=== PATIENT | female | born 1995 | race Caucasian/White ===

== ENCOUNTER 2017-11-30 18:40 | Emergency (ER) | payer BC ==
[2017-11-30 19:15] VITALS: TEMP 98.6
[2017-11-30] MEDS ORDERED: SODIUM CHLORIDE 0.9% 1,000 ML IV STA (19:48)
--- NOTE | 2017-11-30 19:50 | ED ---
Dizziness HPI - General Chief Complaint: Dizziness Stated Complaint: Dizziness,Fatigue,Hypertension Time Seen by Provider: 11/30/17 19:28 Source: patient, RN notes reviewed Mode of arrival: wheelchair Limitations: no limitations - History of Present Illness Initial Comments: This is a 22-year-old female, currently 13 weeks , who presents to the emergency department with chief complaint of dizziness and high blood pressure. Patient states that she was sent home from work on Friday because she became very dizzy. She states that she feels like the room is spinning. She also states that for the past 3 days she's been checking her blood pressure. Earlier today she states she had an at-home blood pressure of 184/ 109. Patient states that she has a history of Sjogren's and is considered a high risk so she goes to maternal medicine on [address]. Patient denies any abdominal pain, nausea or vomiting, diarrhea or constipation, vaginal bleeding or discharge. She does state that she has been feeling very fatigued recently. - Related Data Allergies Allergy/AdvReac Type Severity Reaction Status Date / Time doxycycline Allergy Unknown Verified 11/30/17 19:15 Sulfa (Sulfonamide Allergy Unknown Verified 11/30/17 19:15 Antibiotics) Review of Systems ROS Statement: Those systems with pertinent positive or pertinent negative responses have been documented in the HPI. ROS Other: All systems not noted in ROS Statement are negative. Past Medical History Past Medical History: No Reported History History of Any Multi-Drug Resistant Organisms: None Reported Past Surgical History: Ear Surgery, Tonsillectomy Past Psychological History: Anxiety Smoking Status: Never smoker Past Alcohol Use History: None Reported Past Drug Use History: None Reported General Exam - General Exam Comments Initial Comments: General: Awake and alert, well-developed; in no apparent distress. Mother and grandmother are at bedside. HEENT: Head atraumatic, normocephalic. Pupils are equal, round and reactive to light. Extraocular movements intact. Oropharynx moist without erythema or exudate. Neck: Supple. Normal ROM. Cardiovascular: Regular rate and rhythm. No murmurs, rubs or gallops. Chest symmetrical. Respiratory: Lungs clear to auscultation bilaterally. No wheezes, rales or rhonchi. Normal respiratory effort with no use of accessory muscles. Abdomen: Soft, non-tender, non-distended. No rigidity, rebound or guarding. Normal bowel sounds in all 4 quadrants. Musculoskeletal: Normal ROM, no tenderness bilateral upper and lower extremities. Ambulating normally. Skin: Gordon, warm and dry without rashes or lesions. Neurological: Alert and oriented x3. CN II-XII grossly intact. Speech is fluent and answers are appropriate. No focal neuro deficits. Psychiatric: Normal mood and affect. No overt signs of depression or anxiety noted. Limitations: no limitations Course Vital Signs 11/30/17 19:13 Temperature 98.6 F Pulse Rate 113 H Respiratory 18 Rate Blood Pressure 158/90 O2 Sat by Pulse 100 Oximetry Medical Decision Making - Medical Decision Making This is a 22-year-old female, currently 13 weeks who presents to the emergency department with chief complaint of dizziness and high blood pressure. Patient states that she developed an episode of dizziness on Friday. Denies shortness of breath, chest pain, fevers or chills, abdominal pain, vaginal bleeding or discharge. CBC, CMP and UA were unremarkable. Patient denies any episodes of dizziness while in the emergency department. Her blood pressure was elevated while here. I recommended following up with her PAGE DESIGNER as soon as possible for possible hypertension prescription. Patient is in agreement with plan and voices understanding. She'll be discharged home at this time. She is in no acute distress. - Lab Data Result diagrams: 11/30/17 20:07 11/30/17 20:07 Lab Results 11/30/17 11/30/17 11/30/17 Range/Units 20:07 20:07 20:07 WBC 10.9 H (3.8-10.6) k/uL RBC 4.88 (3.80-5.40) m/uL Hgb 14.4 (11.4-16.0) gm/dL Hct 40.4 (34.0-46.0) % MCV 82.7 (80.0-100.0) fL MCH 29.6 (25.0-35.0) pg MCHC 35.7 (31.0-37.0) g/dL RDW 13.0 (11.5-15.5) % Plt Count 350 (150-450) k/uL Neutrophils % 64 % Lymphocytes % 27 % Monocytes % 6 % Eosinophils % 1 % Basophils % 0 % Neutrophils # 7.0 (1.3-7.7) k/uL Lymphocytes # 3.0 (1.0-4.8) k/uL Monocytes # 0.6 (0-1.0) k/uL Eosinophils # 0.1 (0-0.7) k/uL Basophils # 0.0 (0-0.2) k/uL Sodium 141 (137-145) mmol/L Potassium 3.5 (3.5-5.1) mmol/L Chloride 102 (98-107) mmol/L Carbon Dioxide 25 (22-30) mmol/L Anion Gap 14 mmol/L BUN 5 L (7-17) mg/dL Creatinine 0.40 L (0.52-1.04) mg/dL Est GFR (CKD-EPI)AfAm >90 (>60 ml/min/1.73 sqM) Est GFR (CKD-EPI)NonAf >90 (>60 ml/min/1.73 sqM) Glucose 86 (74-99) mg/dL Calcium 9.2 (8.4-10.2) mg/dL Total Bilirubin 0.6 (0.2-1.3) mg/dL AST 17 (14-36) U/L ALT 26 (9-52) U/L Alkaline Phosphatase 75 (38-126) U/L Total Protein 6.6 (6.3-8.2) g/dL Albumin 3.9 (3.5-5.0) g/dL Urine Color Yellow Urine Appearance Clear (Clear) Urine pH 6.5 (5.0-8.0) Ur Specific [place] 1.012 (1.001-1.035) Urine Protein Negative (Negative) Urine Glucose (UA) Negative (Negative) Urine Ketones 2+ H (Negative) Urine Blood Negative (Negative) Urine Nitrite Negative (Negative) Urine Bilirubin Negative (Negative) Urine Urobilinogen <2.0 (<2.0) mg/dL Ur Leukocyte Esterase Negative (Negative) Disposition Clinical Impression: Dizziness Disposition: HOME SELF-CARE Condition: Good Instructions: Dizziness (ED) Additional Instructions: Please follow-up with your PAGE DESIGNER as soon as possible. Please follow up with primary care provider within 1-2 days. Return to emergency department if symptoms should worsen or any concerns arise. Is patient prescribed a controlled substance at d/c from ED?: No Referrals: Aries Diez MD [Primary Care Provider] - 1-2 days Time of Disposition: 20:49
[2017-11-30 20:16] LABS: Appearance,Urine Clear (Clear); Bilirubin,Urine Negative (Negative); Blood,Urine Negative (Negative); Color,Urine Yellow; Glucose,Urine (UA) Negative (Negative); Ketones,Urine 2+ (Negative); Leukocyte Esterase,Urine Negative (Negative); Nitrite,Urine Negative (Negative); PH, Urine 6.5 (5.0-8.0); Protein,Urine Negative (Negative); Specific Gravity,Urine 1.012 (1.001-1.035); Urobilinogen,Urine <2.0 mg/dL (<2.0)
[2017-11-30 20:18] LABS: Basophils % (A) 0 %; Eosinophils # (A) 0.1 k/uL (0-0.7); Eosinophils % (A) 1 %; HCT 40.4 % (34.0-46.0); HGB 14.4 gm/dL (11.4-16.0); Lymphocytes % (A) 27 %; MCH 29.6 pg (25.0-35.0); MCHC 35.7 g/dL (31.0-37.0); MCV 82.7 fL (80.0-100.0); Mean Platelet Volume 5.8; Monocytes # (A) 0.6 k/uL (0-1.0); Monocytes % (A) 6 %; Neutrophils % (A) 64 %; Platelet Count 350 k/uL (150-450); RBC 4.88 m/uL (3.80-5.40); WBC 10.9 k/uL (3.8-10.6)
[2017-11-30 20:27] LABS: ALT 26 U/L (9-52); AST 17 U/L (14-36); Albumin 3.9 g/dL (3.5-5.0); Alkaline Phosphatase 75 U/L (38-126); Anion Gap 14 mmol/L; Blood Urea Nitrogen 5 mg/dL (7-17); Calcium 9.2 mg/dL (8.4-10.2); Carbon Dioxide 25 mmol/L (22-30); Chloride 102 mmol/L (98-107); Glucose 86 mg/dL (74-99); Potassium 3.5 mmol/L (3.5-5.1); Sodium 141 mmol/L (137-145); Total Bilirubin 0.6 mg/dL (0.2-1.3); Total Protein 6.6 g/dL (6.3-8.2)
[2017-11-30 21:16] VITALS: BP 137/88; PULSE 87; RESP 16
== END 2017-11-30 21:15 | disposition home or self-care (01) ==
LOC: EC 18:40
DX: O99.89 Other specified diseases and conditions complicating pregnancy, childbirth and the puerperium (principal); R42 Dizziness and giddiness; R03.0 Elevated blood-pressure reading, without diagnosis of hypertension; R53.83 Other fatigue; Z88.1 Allergy status to other antibiotic agents; Z88.2 Allergy status to sulfonamides; Z3A.13 13 weeks gestation of pregnancy
CPT/HCPCS: 36415; 80053; 81003; 85025; 96360; 99284

== ENCOUNTER 2018-04-18 17:31 | Outpatient (CLI) | payer BC ==
[2018-04-18 18:58] VITALS: BP 125/79
[2018-04-18 19:06] VITALS: PULSE 108; RESP 18; TEMP 97.3
--- NOTE | 2018-04-19 09:25 | P.MSEPDOC ---
Presenting Problems - Arrival Data Date of Arrival on Unit: 04/18/18 Time of Arrival on Unit: 17:30 Mode of Transport: Ambulatory - Complaint OB-Reason for Admission/Chief Complaint: NST Comment: gest diabetes Medical History - Information : 1 Para: 0 Term: 0 : 0 Abortions: Spontaneous or Elective: 0 Number of Living Children: 0 - Gestational Age Gestational Age by YAMILE (wks/days): 32 Weeks and 6 Days - History Complications: GDM Review of Systems - Review of Systems Constitutional: No problems Breast: No problems ENT: No problems Cardiovascular: No problems Respiratory: No problems Gastrointestinal: No problems Genitourinary: No problems Musculoskeletal: No problems Neurological: No problems Skin: No problems Vital Signs - Temperature Temperature: 97.3 F Temperature Source: Oral - Pulse Right Brachial Pulse Rate: 108 Pulse Assessment Method: Automatic Cuff - Respirations Respiratory Rate: 18 Oxygen Delivery Method: Room Air O2 Sat by Pulse Oximetry: 98 - Blood Pressure Right Arm Blood Pressure: 125/79 Blood Pressure Mean: 94 Blood Pressure Source: Automatic Cuff Medical Screen Scoring (Pre) - Cervical Exam Dilation: 0 cm = 0 Membranes: Intact - Uterine Contractions Frequency: < 36 weeks = 6 Duration: N/A Intensity: N/A - Maternal Vital Signs Maternal Temperature: N/A Maternal Blood Pressure: N/A Signs of Preeclampsia: N/A Maternal Respirations: N/A - Pain Assessment Pain Scale Used: Numeric (1 - 10) Pain Intensity: 0 - Maternal Trauma Maternal Trauma: N/A - Assessment Baseline FHR: 135 Heart Rate - NICHD Category: Category I (Normal) = 0 NST: Reactive Position: N/A Station: N/A - Total Score Total Score (Pre): 6 - Level of Risk Level of Risk: Medium (6-9) Physician Notification (Pre) - Physician Notified Spoke With: debi. - Notification Comment Comment: informed of vag exam. ok for discharge once ffn result is back negative from lab Medical Screen Scoring (Post) - Uterine Contractions Frequency: N/A Duration: N/A Intensity: N/A - Maternal Vital Signs Maternal Temperature: N/A Maternal Blood Pressure: N/A Signs of Preeclampsia: N/A Maternal Respirations: N/A - Pain Assessment Pain Scale Used: Numeric (1 - 10) Pain Intensity: 0 - Total Score Total Score (Post): 0 Physician Notification (Post) - Physician Notified Physician Notified Date: 04/18/18 Physician Notified Time: 19:28 Physician/Practitioner Notified:: Dr. Casas Spoke With: Dr. Casas New Order Received: Yes - Notification Comment Comment: Dr. Casas called and given report on pt ffn results of negative. Orders recieved to d/c pt to home. Pt has apt with Dr. Clark 04/20 at 1600 Disposition - Disposition OB Disposition: Discharge to home Discharge Date: 04/18/18 Discharge Time: 19:30 I agree with the RN Medical Screening Exam: Yes Risk & Benefit of care provided described in d/c instruction: Yes Diagnosis: FALSE LABOR BEFORE 37 COMPLETED WEEKS OF GEST, THIRD TRI
== END 2018-04-18 19:30 | disposition home or self-care (01) ==
LOC: FBPOP 17:31
PROVIDERS: ATTEND Obstetrics & Gynecology
DX: O47.03 False labor before 37 completed weeks of gestation, third trimester (principal); Z3A.32 32 weeks gestation of pregnancy
CPT/HCPCS: 59025; 82731; 99213

== ENCOUNTER 2018-04-19 15:55 | Emergency (ER) | payer BC ==
[2018-04-19 16:17] VITALS: BP 133/92; TEMP 98
--- NOTE | 2018-04-19 17:01 | ED ---
General Adult HPI - General Chief complaint: ENT Stated complaint: Ear pain Time Seen by Provider: 04/19/18 16:25 Source: patient, RN notes reviewed Mode of arrival: ambulatory Limitations: no limitations - History of Present Illness Initial comments: 22-year-old female since to the emergency department for a chief complaint of left ear irritation times one week. Patient states she has had ear pain and decreased hearing for the last week. She states that today when she woke up she had some numbness around her left ear. Patient denies any headaches or pain behind the ear. Patient states she has had chronic ear problems for years. She states she had tubes in her ears multiple times. Patient states she has had chronic ear infections but is not sure what antibiotic she has been prescribed. She states she has ALLERGIES to penicillins and sulfa. She states she had an antibiotic that she cannot remember that caused her symptoms of dizziness a few months ago when she took it. Patient denies fevers or chills at home. Patient admits to mild congestion. Patient denies any cough or sore throat. Patient has no other complaints at this time including shortness of breath, chest pain, abdominal pain, nausea or vomiting, headache, or visual changes. - Related Data Home Medications Medication Instructions Recorded Confirmed Albuterol Inhaler [Ventolin Hfa PRN 04/18/18 Inhaler] Calcium Carbonate [Tums] 500 mg PO TID PRN 04/18/18 04/18/18 Pnv,Calcium 72/Iron/Folic Acid 1 each PO DAILY MDD 1 04/18/18 04/18/18 [ Plus Tablet] Allergies Allergy/AdvReac Type Severity Reaction Status Date / Time Sulfa (Sulfonamide Allergy Severe Rash/Hives Verified 04/19/18 16:18 Antibiotics) doxycycline Allergy Intermediate Rash/Hives Verified 04/19/18 16:18 Penicillins Allergy Rash/Hives Verified 04/19/18 16:18 Review of Systems ROS Statement: Those systems with pertinent positive or pertinent negative responses have been documented in the HPI. ROS Other: All systems not noted in ROS Statement are negative. Past Medical History Past Medical History: No Reported History History of Any Multi-Drug Resistant Organisms: None Reported Past Surgical History: Ear Surgery, Tonsillectomy Past Psychological History: Anxiety Smoking Status: Former smoker Past Alcohol Use History: None Reported Past Drug Use History: None Reported General Exam Limitations: no limitations General appearance: alert, in no apparent distress Head exam: Present: atraumatic, normocephalic, normal inspection Eye exam: Present: normal appearance. Absent: scleral icterus, conjunctival injection ENT exam: Present: normal exam, normal oropharynx (Uvula midline, no tonsillar exudates noted bilaterally. Non-erythematous oropharynx.), mucous membranes moist, TM's normal bilaterally (Very slight erythema noted of the superior left tympanic membranes without evidence of infection.), normal external ear exam ( No tenderness to the tragus or pinna of the left ear. No mastoid tenderness to palpation.) Neck exam: Present: normal inspection, full ROM. Absent: tenderness, meningismus, lymphadenopathy Respiratory exam: Present: normal lung sounds bilaterally. Absent: respiratory distress, wheezes, rales, rhonchi, stridor Cardiovascular Exam: Present: regular rate, normal rhythm, normal heart sounds. Absent: systolic murmur, diastolic murmur, rubs, gallop, clicks Extremities exam: Present: full ROM (Patient moving all extremities without difficulty) Neurological exam: Present: alert, oriented X3, CN II-XII intact, normal gait. Absent: motor sensory deficit (Sensation intact in upper and lower extremities) Expanded Patient oriented to: Present: person, place, time Speech: Present: fluid speech Cranial nerves: EOM's Intact: Normal, Tongue Deviation: Normal, Nystagmus: Normal Cerebellar function: Finger to Nose: Normal Upper motor neuron: Pronator Drift: Normal Sensory exam: Upper Extremity Light Touch: Normal, Upper Extremity Pin Prick: Normal, Lower Extremity Light Touch: Normal, Lower Extremity Pin Prick: Normal Motor strength exam: RUE: 5, LUE: 5, RLE: 5, LLE: 5 Eye Response: (4) open spontaneously Motor Response: (6) obeys commands Verbal Response: (5) oriented Alphonso Total: 15 Psychiatric exam: Present: normal affect (Patient sitting up in bed alert and oriented. She is pleasant and cooperative.), normal mood Skin exam: Present: other (patient has mildly decreased sensation anterior to the left ear, no facial droop, patient able to smile and raise eyebrows symmetrically.) Course Vital Signs 04/19/18 04/19/18 16:15 17:11 Temperature 98 F Pulse Rate 108 H 103 H Respiratory 16 18 Rate Blood Pressure 133/92 O2 Sat by Pulse 99 98 Oximetry Medical Decision Making - Medical Decision Making 22-year-old female presents to the emergency department for a chief complaint of left ear pain times one week. Patient has history of chronic ear infections and has had tympanostomy in the past. No fevers or chills at home. Patient states her hearing has been decreased since that time as well. Patient also complains of some numbness noted anterior to the left ear after she woke up today from laying on that side. No focal neuro deficits, GCS 15, patient is well-appearing, pleasant and cooperative. Skin exam patient has very mild erythema noted of the left superior tympanic membranes without any pain to the tragus pinna or mastoid process. Patient does have some congestion. Dr. Scott also saw the patient and visualized the ear. Right tympanic membranes within normal limits. We are in agreement that left TM does not appear infected but is probably irritated and patient is probably experiencing eustachian tube dysfunction. I did recommend Afrin nasal spray but discussed with patient that she should discuss this use with her OBGYN at her appointment tomorrow before taking. She is to take Tylenol for pain. She is to return if she has any worsening symptoms or fever. Disposition Clinical Impression: Ear ache Disposition: HOME SELF-CARE Condition: Good Instructions: Earache (ED) Additional Instructions: Please take tylenol for pain. Please discuss use of Afrin spray with OBGYN for eustachian tube dysfunction. Follow up with primary care in 1-2 days. Return to the ED if you have any worsening symptoms or fevers. Is patient prescribed a controlled substance at d/c from ED?: No Referrals: Nonstaff,Physician [Primary Care Provider] - 1-2 days Time of Disposition: 16:59
[2018-04-19 17:12] VITALS: PULSE 103; RESP 18
== END 2018-04-19 17:12 | disposition home or self-care (01) ==
LOC: EC 15:55
DX: H92.02 Otalgia, left ear (principal); H91.92 Unspecified hearing loss, left ear; R20.0 Anesthesia of skin; R09.89 Other specified symptoms and signs involving the circulatory and respiratory systems; Z87.891 Personal history of nicotine dependence; Z96.22 Myringotomy tube(s) status; Z88.2 Allergy status to sulfonamides; Z88.1 Allergy status to other antibiotic agents; Z88.0 Allergy status to penicillin
CPT/HCPCS: 99282

== ENCOUNTER 2018-04-21 16:19 | Outpatient (CLI) | payer BC ==
--- NOTE | 2018-05-12 09:33 | P.MSEPDOC ---
Presenting Problems - Arrival Data Date of Arrival on Unit: 04/21/18 Time of Arrival on Unit: 16:22 Mode of Transport: Ambulatory Disposition - Disposition Discharge Date: 04/21/18 Discharge Time: 17:04 I agree with the RN Medical Screening Exam: Yes Risk & Benefit of care provided described in d/c instruction: Yes Diagnosis: GESTATIONAL DIABETES MELLITUS IN , DIET CONTROLLED
== END 2018-04-21 17:05 | disposition home or self-care (01) ==
LOC: FBPOP 16:19
PROVIDERS: ATTEND Obstetrics & Gynecology
DX: O24.410 Gestational diabetes mellitus in pregnancy, diet controlled (principal); Z3A.00 Weeks of gestation of pregnancy not specified
CPT/HCPCS: 59025

== ENCOUNTER 2018-04-25 16:32 | Outpatient (CLI) | payer BC ==
[2018-04-25 17:07] VITALS: BP 124/79; PULSE 105; RESP 16; TEMP 97.2
--- NOTE | 2018-05-12 09:32 | P.MSEPDOC ---
Presenting Problems - Arrival Data Date of Arrival on Unit: 04/25/18 Time of Arrival on Unit: 16:30 Mode of Transport: Ambulatory Vital Signs - Temperature Temperature: 97.2 F Temperature Source: Temporal Artery Scan - Pulse Right Brachial Pulse Rate: 105 Pulse Assessment Method: Automatic Cuff - Respirations Respiratory Rate: 16 Oxygen Delivery Method: Room Air O2 Sat by Pulse Oximetry: 97 - Blood Pressure Right Arm Blood Pressure: 124/79 Blood Pressure Mean: 94 Blood Pressure Source: Automatic Cuff Medical Screen Scoring (Post) - Cervical Exam Dilation: Exam Deferred - Uterine Contractions Frequency: N/A Duration: N/A Intensity: N/A - Maternal Vital Signs Maternal Temperature: N/A Maternal Blood Pressure: N/A Signs of Preeclampsia: N/A Maternal Respirations: N/A - Pain Assessment Pain Scale Used: Numeric (1 - 10) Pain Intensity: 0 Pain Management Goal: 0 Pain Behavior: None Exhibited - Maternal Trauma Maternal Trauma: N/A - Assessment Heart Rate: 135 Heart Rate - NICHD Category: Category I (Normal) = 0 NST: Reactive Position: N/A - Total Score Total Score (Post): 0 - Post Treatment Level of Risk Post Treatment Level of Risk: Low (0-5) Physician Notification (Post) - Physician Notified Physician Notified Date: 04/25/18 Physician Notified Time: 17:05 Physician/Practitioner Notified:: Amber Spoke With: Amber New Order Received: No - Notification Comment Comment: pt here for scheduled bi-weekly NST's relatd to gestational diabetes. Dr Clark here in department, reviewed strip,verbal order received to discharge pt home. Disposition - Disposition OB Disposition: Discharge to home Discharge Date: 04/25/18 Discharge Time: 17:06 I agree with the RN Medical Screening Exam: Yes Risk & Benefit of care provided described in d/c instruction: Yes Diagnosis: GESTATIONAL DIABETES MELLITUS IN , DIET CONTROLLED
== END 2018-04-25 17:10 | disposition home or self-care (01) ==
LOC: FBPOP 16:32
PROVIDERS: ATTEND Obstetrics & Gynecology
DX: O24.410 Gestational diabetes mellitus in pregnancy, diet controlled (principal); Z3A.00 Weeks of gestation of pregnancy not specified
CPT/HCPCS: 59025; 99213

== ENCOUNTER 2018-04-28 17:27 | Outpatient (CLI) | payer BC ==
[2018-04-28 18:54] VITALS: BP 127/81; PULSE 95; RESP 15; TEMP 97.3
--- NOTE | 2018-05-16 09:37 | P.MSEPDOC ---
Presenting Problems - Arrival Data Date of Arrival on Unit: 04/28/18 Time of Arrival on Unit: 17:27 Mode of Transport: Ambulatory Vital Signs - Temperature Temperature: 97.3 F Temperature Source: Temporal Artery Scan - Pulse Brachial Pulse Rate: 95 Pulse Assessment Method: Automatic Cuff - Respirations Respiratory Rate: 15 Oxygen Delivery Method: Room Air O2 Sat by Pulse Oximetry: 98 - Blood Pressure Right Arm Sitting Blood Pressure: 127/81 Blood Pressure Mean: 96 Blood Pressure Source: Automatic Cuff Medical Screen Scoring (Post) - Cervical Exam Dilation: 0 cm = 0 Membranes: Intact - Uterine Contractions Frequency: < 36 weeks = 6 Duration: N/A Intensity: N/A - Maternal Vital Signs Maternal Temperature: N/A Maternal Blood Pressure: N/A Signs of Preeclampsia: N/A Maternal Respirations: N/A - Pain Assessment Pain Location and Character: Abdomen Pain Scale Used: Numeric (1 - 10) Pain Intensity: 3 Pain Management Goal: 2 Pain Description: *Acute Pain Frequency: Intermittent Pain Duration Units: Hours Pain Behavior: Vocalization Pain Aggravating Factors: Activity, Position Non-Pharmacological Interventions: Relaxation Technique - Maternal Trauma Maternal Trauma: N/A - Assessment Heart Rate: 130 Heart Rate - NICHD Category: Category I (Normal) = 0 NST: Reactive Position: N/A Station: N/A - Total Score Total Score (Post): 6 - Post Treatment Level of Risk Post Treatment Level of Risk: Medium (6-9) Physician Notification (Post) - Physician Notified Physician Notified Date: 04/28/18 Physician Notified Time: 18:05 Spoke With: Dr Casas New Order Received: Yes - Notification Comment Comment: pt here for bi-weekly NST for Gest DM. pt graphing mild contx on toco , had recent intercourse. Pt checked and is closed. pt states she feels like the tightening has gotten better since earlier today. pt sent home per Dr Casas order and will return on Friday for another NST and vag exam if needed. Disposition - Disposition OB Disposition: Triage, Discharge to home, Written follow up instructions reviewed Discharge Date: 04/28/18 Discharge Time: 18:25 I agree with the RN Medical Screening Exam: Yes Risk & Benefit of care provided described in d/c instruction: Yes Diagnosis: GESTATIONAL DIABETES IN THE PUERPERIUM, DIET CONTROLLED
== END 2018-04-28 18:25 | disposition home or self-care (01) ==
LOC: FBPOP 17:27
PROVIDERS: ATTEND Obstetrics & Gynecology
DX: O24.420 Gestational diabetes mellitus in childbirth, diet controlled (principal); Z3A.00 Weeks of gestation of pregnancy not specified
CPT/HCPCS: 59025

== ENCOUNTER 2018-05-02 11:59 | Outpatient (CLI) | payer BC ==
--- NOTE | 2018-05-11 08:24 | P.MSEPDOC ---
Presenting Problems - Arrival Data Date of Arrival on Unit: 05/02/18 Time of Arrival on Unit: 12:10 Mode of Transport: Ambulatory Disposition - Disposition Discharge Date: 05/02/18 Discharge Time: 12:39 I agree with the RN Medical Screening Exam: Yes Risk & Benefit of care provided described in d/c instruction: Yes Diagnosis: GESTATIONAL DIABETES MELLITUS IN , DIET CONTROLLED
== END 2018-05-02 12:40 | disposition home or self-care (01) ==
LOC: FBPOP 11:59
PROVIDERS: ATTEND Obstetrics & Gynecology
DX: O24.410 Gestational diabetes mellitus in pregnancy, diet controlled (principal); Z3A.00 Weeks of gestation of pregnancy not specified
CPT/HCPCS: 59025

== ENCOUNTER 2018-05-04 16:40 | Outpatient (CLI) | payer BC ==
[2018-05-04 17:16] VITALS: BP 123/77; PULSE 111; RESP 16; TEMP 98.2
--- NOTE | 2018-05-05 08:25 | P.MSEPDOC ---
Presenting Problems - Arrival Data Date of Arrival on Unit: 05/04/18 Time of Arrival on Unit: 16:40 Mode of Transport: Ambulatory - Complaint OB-Reason for Admission/Chief Complaint: NST Comment: Pt arrives with script for biweekly NST r/t GDM-diet controlled. Medical History - Information : 1 Para: 0 Term: 0 : 0 Abortions: Spontaneous or Elective: 0 Number of Living Children: 0 - Gestational Age Gestational Age by YAMILE (wks/days): 35 Weeks and 1 Days - History Complications: GDM Review of Systems - Review of Systems Constitutional: No problems Breast: No problems ENT: No problems Cardiovascular: No problems Respiratory: No problems Gastrointestinal: No problems Genitourinary: No problems Musculoskeletal: No problems Neurological: No problems Skin: No problems Vital Signs - Temperature Temperature: 98.2 F Temperature Source: Tympanic - Pulse Right Sitting Brachial Pulse Rate: 111 Pulse Assessment Method: Automatic Cuff - Respirations Respiratory Rate: 16 Oxygen Delivery Method: Room Air O2 Sat by Pulse Oximetry: 97 - Blood Pressure Right Arm Sitting Blood Pressure: 123/77 Blood Pressure Mean: 92 Blood Pressure Source: Automatic Cuff Medical Screen Scoring (Pre) - Cervical Exam Dilation: Exam Deferred Effacement: Exam Deferred Membranes: Intact - Uterine Contractions Frequency: N/A Duration: N/A Intensity: N/A - Maternal Vital Signs Maternal Temperature: N/A Maternal Blood Pressure: N/A Signs of Preeclampsia: N/A Maternal Respirations: N/A - Maternal Trauma Maternal Trauma: N/A - Assessment Baseline FHR: 140 Heart Rate - NICHD Category: Category I (Normal) = 0 NST: Reactive Position: N/A Station: N/A - Total Score Total Score (Pre): 0 - Level of Risk Level of Risk: Low (0-5) Physician Notification (Pre) - Notification Comment Comment: D/C home, follow up as scheduled Disposition - Disposition OB Disposition: Triage, Discharge to home, Written follow up instructions reviewed Discharge Date: 05/04/18 Discharge Time: 17:15 I agree with the RN Medical Screening Exam: Yes Risk & Benefit of care provided described in d/c instruction: Yes Diagnosis: GESTATIONAL DIABETES MELLITUS IN , DIET CONTROLLED
== END 2018-05-04 17:15 | disposition home or self-care (01) ==
LOC: FBPOP 16:40
PROVIDERS: ATTEND Obstetrics & Gynecology
DX: O24.410 Gestational diabetes mellitus in pregnancy, diet controlled (principal); Z3A.35 35 weeks gestation of pregnancy
CPT/HCPCS: 59025

== ENCOUNTER 2018-05-06 15:26 | Outpatient (CLI) | payer BC ==
[2018-05-06 16:32] VITALS: BP 126/82; PULSE 98; RESP 18; TEMP 97.3
[2018-05-06 16:36] LABS: Glucose,Whole Blood 71 mg/dL (75-99)
--- NOTE | 2018-05-11 07:46 | P.MSEPDOC ---
Presenting Problems - Arrival Data Date of Arrival on Unit: 05/06/18 Time of Arrival on Unit: 15:35 Mode of Transport: Ambulatory - Complaint OB-Reason for Admission/Chief Complaint: Rule Out SROM Comment: leaking today at 1320, clear after using the restroom and ambulating at work Medical History - Information : 1 Para: 0 Term: 0 : 0 Abortions: Spontaneous or Elective: 0 Number of Living Children: 0 - Gestational Age Gestational Age by YAMILE (wks/days): 35 Weeks and 3 Days - History Complications: GDM Comment: hx GDM diet controlled and sjogrens disease, follow by high risk Review of Systems - Review of Systems Constitutional: No problems Breast: No problems ENT: No problems Cardiovascular: No problems Respiratory: No problems Gastrointestinal: No problems Genitourinary: No problems Musculoskeletal: No problems Neurological: No problems Skin: No problems Vital Signs - Temperature Temperature: 97.3 F Temperature Source: Temporal Artery Scan - Pulse Right Sitting Brachial Pulse Rate: 98 Pulse Assessment Method: Automatic Cuff - Respirations Respiratory Rate: 18 Oxygen Delivery Method: Room Air O2 Sat by Pulse Oximetry: 98 - Blood Pressure Right Arm Sitting Blood Pressure: 126/82 Blood Pressure Mean: 96 Blood Pressure Source: Automatic Cuff Medical Screen Scoring (Pre) - Cervical Exam Dilation: 1-3 cm = 1 - Uterine Contractions Frequency: > 5 minutes apart = 1 Duration: N/A Intensity: N/A - Maternal Vital Signs Maternal Temperature: N/A Maternal Blood Pressure: N/A Signs of Preeclampsia: N/A Maternal Respirations: N/A - Pain Assessment Pain Scale Used: Numeric (1 - 10) Pain Intensity: 0 Pain Management Goal: 3 - Maternal Trauma Maternal Trauma: N/A - Assessment Baseline FHR: 125 Heart Rate - NICHD Category: Category I (Normal) = 0 NST: Reactive Position: N/A Station: N/A - Total Score Total Score (Pre): 2 - Level of Risk Level of Risk: Low (0-5) Physician Notification (Pre) - Physician Notified Physician Notified Date: 05/06/18 Physician Notified Time: 16:18 Physician/Practitioner Notifed:: Dr Selby Spoke With: Dr selby New Order Received: Yes - Notification Comment Comment: ok to dc home. follow up with dr Clark as scheduled. Disposition - Disposition OB Disposition: Discharge to home Discharge Date: 05/06/18 Discharge Time: 16:33 I agree with the RN Medical Screening Exam: Yes Risk & Benefit of care provided described in d/c instruction: Yes Diagnosis: FALSE LABOR BEFORE 37 COMPLETED WEEKS OF GEST, THIRD TRI
== END 2018-05-06 16:34 | disposition home or self-care (01) ==
LOC: FBPOP 15:26
PROVIDERS: ATTEND Obstetrics & Gynecology
DX: O47.03 False labor before 37 completed weeks of gestation, third trimester (principal); Z3A.35 35 weeks gestation of pregnancy
CPT/HCPCS: 59025; 84112; 99213

== ENCOUNTER 2018-05-11 11:37 | Outpatient (CLI) | payer BC ==
[2018-05-11 12:48] VITALS: BP 123/76; PULSE 100; RESP 16; TEMP 97.9
--- NOTE | 2018-05-11 13:13 | P.MSEPDOC ---
Presenting Problems - Arrival Data Date of Arrival on Unit: 05/11/18 Time of Arrival on Unit: 11:30 Mode of Transport: Ambulatory - Complaint OB-Reason for Admission/Chief Complaint: NST Comment: PT ARRIVES WITH DOCTORS ORDER FOR NST Medical History - Information : 1 Para: 0 Term: 0 : 0 Abortions: Spontaneous or Elective: 0 Number of Living Children: 0 - Gestational Age Gestational Age by YAMILE (wks/days): 36 Weeks and 1 Days - History Complications: GDM Review of Systems - Review of Systems Constitutional: No problems Breast: No problems ENT: No problems Cardiovascular: No problems Respiratory: No problems Gastrointestinal: No problems Genitourinary: No problems Musculoskeletal: No problems Neurological: No problems Skin: No problems Vital Signs - Temperature Temperature: 97.9 F Temperature Source: Oral - Pulse Supine Pulse Rate: 100 Pulse Assessment Method: Auscultation - Respirations Respiratory Rate: 16 Oxygen Delivery Method: Room Air - Blood Pressure Sitting Blood Pressure: 123/76 Blood Pressure Mean: 91 Blood Pressure Source: Automatic Cuff Medical Screen Scoring (Pre) - Cervical Exam Dilation: Exam Deferred - Uterine Contractions Frequency: N/A - Maternal Vital Signs Maternal Temperature: N/A Signs of Preeclampsia: N/A Maternal Respirations: N/A - Pain Assessment Pain Intensity: 0 Pain Management Goal: 0 Pain Radiation Location: 0 Pain Duration: 0 Pain Behavior: None Exhibited - Maternal Trauma Maternal Trauma: N/A - Assessment Baseline FHR: 140 Heart Rate - NICHD Category: Category I (Normal) = 0 NST: Reactive - Total Score Total Score (Pre): 0 - Level of Risk Level of Risk: Low (0-5) Physician Notification (Pre) - Physician Notified Physician Notified Date: 05/11/18 Physician Notified Time: 12:48 Physician/Practitioner Notifed:: DR GONZALES New Order Received: Yes - Notification Comment Comment: PT TO BE DISCHARGED HOME Disposition - Disposition OB Disposition: Discharge to home, Written follow up instructions reviewed Discharge Date: 05/11/18 Discharge Time: 12:48 I agree with the RN Medical Screening Exam: Yes Risk & Benefit of care provided described in d/c instruction: Yes Diagnosis: GESTATIONAL DIABETES MELLITUS IN , DIET CONTROLLED
== END 2018-05-11 12:49 | disposition home or self-care (01) ==
LOC: FBPOP 11:37
PROVIDERS: ATTEND Obstetrics & Gynecology
DX: O24.410 Gestational diabetes mellitus in pregnancy, diet controlled (principal); Z3A.36 36 weeks gestation of pregnancy
CPT/HCPCS: 59025

== ENCOUNTER 2018-05-18 10:48 | Outpatient (CLI) | payer BC ==
[2018-05-18 11:07] VITALS: BP 124/84; PULSE 104; RESP 16; TEMP 96.8
--- NOTE | 2018-05-18 13:55 | P.MSEPDOC ---
Presenting Problems - Arrival Data Date of Arrival on Unit: 05/18/18 Time of Arrival on Unit: 10:48 Mode of Transport: Ambulatory - Complaint OB-Reason for Admission/Chief Complaint: NST Medical History - Information : 1 Para: 0 Term: 0 : 0 Abortions: Spontaneous or Elective: 0 Number of Living Children: 0 - Gestational Age Gestational Age by YAMILE (wks/days): 37 Weeks and 1 Days Review of Systems - Review of Systems Constitutional: No problems Breast: No problems ENT: No problems Cardiovascular: No problems Respiratory: No problems Gastrointestinal: No problems Genitourinary: No problems Musculoskeletal: No problems Neurological: No problems Skin: No problems Vital Signs - Temperature Temperature: 96.8 F Temperature Source: Temporal Artery Scan - Pulse Right Pulse Rate: 104 Pulse Assessment Method: Pulse Oximetry - Respirations Respiratory Rate: 16 Oxygen Delivery Method: Room Air O2 Sat by Pulse Oximetry: 96 - Blood Pressure Right Arm Blood Pressure: 124/84 Blood Pressure Mean: 97 Blood Pressure Source: Automatic Cuff Medical Screen Scoring (Pre) - Cervical Exam Dilation: Exam Deferred Effacement: Exam Deferred Membranes: Intact - Uterine Contractions Frequency: N/A Duration: N/A Intensity: N/A - Maternal Vital Signs Maternal Temperature: N/A Maternal Blood Pressure: N/A Signs of Preeclampsia: N/A Maternal Respirations: N/A - Pain Assessment Pain Location and Character: Back Pain Scale Used: Numeric (1 - 10) Pain Intensity: 3 Pain Management Goal: 3 Pain Description: *Acute, Aching Pain Frequency: Intermittent Pain Duration Units: Minutes Pain Behavior: Vocalization - Maternal Trauma Maternal Trauma: N/A - Assessment Baseline FHR: 140 Heart Rate - NICHD Category: Category I (Normal) = 0 NST: Reactive Position: N/A Station: N/A - Total Score Total Score (Pre): 0 - Level of Risk Level of Risk: Low (0-5) Disposition - Disposition Discharge Date: 05/18/18 Discharge Time: 11:33 I agree with the RN Medical Screening Exam: Yes Risk & Benefit of care provided described in d/c instruction: Yes Diagnosis: GESTATIONAL DIABETES MELLITUS IN , DIET CONTROLLED
== END 2018-05-18 11:33 | disposition home or self-care (01) ==
LOC: FBPOP 10:48
PROVIDERS: ATTEND Obstetrics & Gynecology
DX: O24.410 Gestational diabetes mellitus in pregnancy, diet controlled (principal); Z3A.37 37 weeks gestation of pregnancy
CPT/HCPCS: 59025; 99213

== ENCOUNTER 2018-05-23 20:58 | Outpatient (CLI) | payer BC ==
[2018-05-23 21:11] LABS: Glucose,Whole Blood 114 mg/dL (75-99)
[2018-05-23 21:15] VITALS: BP 134/90; PULSE 112; RESP 18; TEMP 97.2
--- NOTE | 2018-05-24 11:09 | P.MSEPDOC ---
Presenting Problems - Arrival Data Date of Arrival on Unit: 05/23/18 Time of Arrival on Unit: 20:58 Mode of Transport: Ambulatory - Complaint OB-Reason for Admission/Chief Complaint: Possible Onset of Labor Comment: 1919 4-5 min apart Medical History - Information : 1 Para: 0 Term: 0 : 0 Abortions: Spontaneous or Elective: 0 Number of Living Children: 0 - Gestational Age Gestational Age by YAMILE (wks/days): 37 Weeks and 6 Days - History Complications: GDM Comment: diet control Review of Systems - Review of Systems Constitutional: No problems Breast: No problems ENT: No problems Cardiovascular: No problems Respiratory: No problems Gastrointestinal: No problems Genitourinary: No problems Musculoskeletal: No problems Neurological: No problems Skin: No problems Vital Signs - Temperature Temperature: 97.2 F Temperature Source: Temporal Artery Scan - Pulse Right Brachial Pulse Rate: 112 Pulse Assessment Method: Automatic Cuff - Respirations Respiratory Rate: 18 Oxygen Delivery Method: Room Air O2 Sat by Pulse Oximetry: 97 - Blood Pressure Right Arm Blood Pressure: 134/90 Blood Pressure Mean: 104 Blood Pressure Source: Automatic Cuff Medical Screen Scoring (Pre) - Cervical Exam Dilation: 1-3 cm = 1 Effacement: More than 50% = 2 Membranes: Intact - Uterine Contractions Frequency: > or = 36 weeks =2 Duration: > 40 seconds = 2 - Maternal Vital Signs Maternal Temperature: N/A Maternal Blood Pressure: Diastolic > 89 = 1 Signs of Preeclampsia: N/A Maternal Respirations: N/A - Pain Assessment Pain Location and Character: Abdomen Pain Scale Used: Numeric (1 - 10) Pain Intensity: 5 Pain Description: *Acute, Tightness Pain Frequency: Intermittent Pain Duration: 2 Pain Duration Units: Hours Pain Behavior: None Exhibited Pain Aggravating Factors: Contractions Non-Pharmacological Interventions: Position/Reposition, Reduce Environmental Stimuli - Maternal Trauma Maternal Trauma: N/A - Assessment Baseline FHR: 140 Heart Rate - NICHD Category: Category I (Normal) = 0 NST: Reactive Position: N/A - Total Score Total Score (Pre): 8 - Level of Risk Level of Risk: Medium (6-9) Medical Screen Scoring (Post) - Cervical Exam Dilation: 1-3 cm = 1 - Uterine Contractions Frequency: > 5 minutes apart = 1 Duration: > 40 seconds = 2 - Total Score Total Score (Post): 4 - Post Treatment Level of Risk Post Treatment Level of Risk: Low (0-5) Physician Notification (Post) - Physician Notified Physician Notified Date: 05/23/18 Physician Notified Time: 22:15 Spoke With: Amber Lux Order Received: Yes (discharge to home) Disposition - Disposition OB Disposition: Discharge to home, Written follow up instructions reviewed Discharge Date: 05/23/18 Discharge Time: 22:17 I agree with the RN Medical Screening Exam: Yes Risk & Benefit of care provided described in d/c instruction: Yes Diagnosis: FALSE LABOR AT OR AFTER 37 COMPLETED WEEKS OF GESTATION
== END 2018-05-23 22:17 | disposition home or self-care (01) ==
LOC: FBPOP 20:58
PROVIDERS: ATTEND Obstetrics & Gynecology
DX: O47.1 False labor at or after 37 completed weeks of gestation (principal); Z3A.37 37 weeks gestation of pregnancy
CPT/HCPCS: 59025; 99213

== ENCOUNTER 2018-05-26 18:11 | Outpatient (CLI) | payer BC ==
[2018-05-26 18:46] VITALS: BP 127/85; PULSE 97; RESP 18; TEMP 96.9
--- NOTE | 2018-05-27 06:14 | P.MSEPDOC ---
Presenting Problems - Arrival Data Date of Arrival on Unit: 05/26/18 Time of Arrival on Unit: 18:15 Mode of Transport: Ambulatory - Complaint OB-Reason for Admission/Chief Complaint: NST Medical History - Information : 1 Para: 0 Term: 0 : 0 Abortions: Spontaneous or Elective: 0 Number of Living Children: 0 - Gestational Age Gestational Age by YAMILE (wks/days): 38 Weeks and 2 Days - History Complications: GDM Review of Systems - Review of Systems Constitutional: No problems Breast: No problems ENT: No problems Cardiovascular: No problems Respiratory: No problems Gastrointestinal: No problems Genitourinary: No problems Musculoskeletal: No problems Neurological: No problems Skin: No problems Vital Signs - Temperature Temperature: 96.9 F Temperature Source: Temporal Artery Scan - Pulse Right Brachial Pulse Rate: 97 Pulse Assessment Method: Automatic Cuff - Respirations Respiratory Rate: 18 Oxygen Delivery Method: Room Air - Blood Pressure Right Arm Blood Pressure: 127/85 Blood Pressure Mean: 99 Blood Pressure Source: Automatic Cuff Medical Screen Scoring (Pre) - Cervical Exam Dilation: Exam Deferred Effacement: Exam Deferred Membranes: Intact - Uterine Contractions Frequency: N/A Duration: N/A Intensity: N/A - Maternal Vital Signs Maternal Temperature: N/A Maternal Blood Pressure: N/A Signs of Preeclampsia: N/A Maternal Respirations: N/A - Pain Assessment Pain Scale Used: Numeric (1 - 10) Pain Intensity: 0 - Maternal Trauma Maternal Trauma: N/A - Assessment Baseline FHR: 130 Heart Rate - NICHD Category: Category I (Normal) = 0 NST: Reactive Position: N/A Station: N/A - Total Score Total Score (Pre): 0 - Level of Risk Level of Risk: Low (0-5) Physician Notification (Pre) - Physician Notified Physician Notified Date: 05/26/18 Physician Notified Time: 18:25 Physician/Practitioner Notifed:: Dr Bray Spoke With: Dr Bray New Order Received: Yes - Notification Comment Comment: D/C Home when NST reactive Medical Screen Scoring (Post) - Cervical Exam Dilation: Exam Deferred Effacement: Exam Deferred Membranes: Intact - Uterine Contractions Frequency: N/A Duration: N/A Intensity: N/A - Maternal Vital Signs Maternal Temperature: N/A Maternal Blood Pressure: N/A Signs of Preeclampsia: N/A Maternal Respirations: N/A - Pain Assessment Pain Intensity: 0 - Maternal Trauma Maternal Trauma: N/A - Assessment Heart Rate: 130 Heart Rate - NICHD Category: Category I (Normal) = 0 NST: Reactive Position: N/A Station: N/A - Total Score Total Score (Post): 0 - Post Treatment Level of Risk Post Treatment Level of Risk: Low (0-5) Physician Notification (Post) - Physician Notified Physician Notified Date: 05/26/18 Physician Notified Time: 18:25 Physician/Practitioner Notified:: Dr Bray Spoke With: Dr rBay Disposition - Disposition OB Disposition: Discharge to home Discharge Date: 05/26/18 Discharge Time: 18:50 I agree with the RN Medical Screening Exam: Yes Risk & Benefit of care provided described in d/c instruction: Yes Diagnosis: GESTATIONAL DIABETES IN THE PUERPERIUM, UNSP CONTROL
== END 2018-05-26 18:49 | disposition home or self-care (01) ==
LOC: FBPOP 18:11
PROVIDERS: ATTEND Obstetrics & Gynecology
DX: O24.439 Gestational diabetes mellitus in the puerperium, unspecified control (principal); Z3A.38 38 weeks gestation of pregnancy
CPT/HCPCS: 59025

== ENCOUNTER 2018-06-01 05:45 | Inpatient (IN) | payer BC ==
--- NOTE | 2018-05-31 17:09 | P.HPOB ---
History of Present Illness H&P Date: 05/31/18 Chief Complaint: Induction of labor This is a 23-year-old female 1 para 0 with an estimated date of confinement of 06/07/2018, estimated gestational age of 39 and one sevenths weeks, who presents to labor and delivery for induction of labor. She admits to good movement. Her has been complicated by gestational diabetes diet controlled. She was also diagnosed with Sjogren syndrome along with Raynaud's syndrome. She was positive for SSA and SSB. She has been followed by maternal- medicine and has been getting twice weekly nonstress tests. labs: Hepatitis B surface antigen-negative RPR-nonreactive Rubella-immune Blood type-A+ Antibody screen-negative HIV-nonreactive Hemoglobin-14.9 Toxoplasma screen-negative Random glucose-109 One hour Glucola-170 Three-hour Glucola-abnormal echocardiograms-normal Group B streptococcus-negative Obstetrical history: Gynecologic history: No history of sexual transmitted diseases Social history she is . She works full-time at [employer]. Review of Systems Constitutional: Denies chills, Denies fever Eyes: denies blurred vision, denies pain Ears, nose, mouth and throat: Denies headache, Denies sore throat Cardiovascular: Denies chest pain, Denies shortness of breath Respiratory: Denies cough Gastrointestinal: Reports abdominal pain Genitourinary: Reports pelvic pain, Reports Musculoskeletal: Reports low back pain Integumentary: Denies pruritus, Denies rash Neurological: Denies numbness, Denies weakness Psychiatric: Denies anxiety, Denies depression Past Medical History Past Medical History: Asthma, Rheumatoid Arthritis (RA) Additional Past Medical History / Comment(s): Sjogren's disease, Raynaud's syndrome History of Any Multi-Drug Resistant Organisms: None Reported Past Surgical History: Ear Surgery, Tonsillectomy Additional Past Surgical History / Comment(s): Myringotomy with tube placement, wisdom teeth Past Psychological History: No Psychological Hx Reported Smoking Status: Never smoker Past Alcohol Use History: None Reported Past Drug Use History: None Reported Medications and Allergies Home Medications Medication Instructions Recorded Confirmed Type Albuterol Inhaler [Ventolin Hfa 1 inhaler INHALATION DIRECTED 04/18/18 History Inhaler] PRN Calcium Carbonate [Tums] 500 mg PO TID PRN 04/18/18 05/23/18 History Pnv,Calcium 72/Iron/Folic Acid 1 each PO DAILY MDD 1 04/18/18 05/23/18 History [ Plus Tablet] Allergies Allergy/AdvReac Type Severity Reaction Status Date / Time Sulfa (Sulfonamide Allergy Severe Rash/Hives Verified 05/23/18 21:05 Antibiotics) doxycycline Allergy Intermediate Rash/Hives Verified 05/23/18 21:05 Penicillins Allergy Rash/Hives Verified 05/23/18 21:05 Latex, Natural Rubber AdvReac Rash/Hives Verified 05/23/18 21:05 Exam Osteopathic Statement: *. No significant issues noted on an osteopathic structural exam other than those noted in the History and Physical/Consult. HEENT: Within normal limits Heart: Regular rate and rhythm Lungs: Clear to auscultation bilaterally Abdomen: Cervix: 1.5 cm/60%/-2 station heart tones: 140s by Doppler Extremities: Negative Homans Assessment and Plan (1) 39 weeks gestation of Status: Acute Code(s): Z3A.39 - 39 WEEKS GESTATION OF SNOMED Code( s): 86498879 (2) Gestational diabetes mellitus (GDM) Status: Acute Code(s): O24.419 - GESTATIONAL DIABETES MELLITUS IN , UNSP CONTROL SNOMED Code(s): 98360170 Plan: Admission for induction of labor. Oxytocin induction of labor. Expectant management. Epidural anesthesia if desired.
[2018-06-01] MEDS ORDERED: OXYTOCIN 10 UNIT/ML 1 ML VIAL IM PRN (06:05)
[2018-06-01] MEDS ORDERED: CARBOPROST TROMETHAMINE 250 MCG/ML 1 ML AMP IM PRN (06:05)
[2018-06-01] MEDS ORDERED: TERBUTALINE 1 MG/ML VIAL SQ PRN (06:05)
[2018-06-01] MEDS ORDERED: LIDOCAINE 0.5% (PF) 5 MG/ML (50 ML SDV) SQ PRN (06:05)
[2018-06-01] MEDS ORDERED: OXYTOCIN 20 UNITS/1000 ML NS 1,000 ML IV SCH (06:05)
[2018-06-01] MEDS ORDERED: METHYLERGONOVINE 0.2 MG/ML 1 ML AMP IM PRN (06:05)
[2018-06-01] MEDS ORDERED: LIDOCAINE 1% 20 ML VIAL (10MG/ML) FOR IV START INTRADERMA PRN (06:05)
[2018-06-01] MEDS: LACTATED RINGERS 1,000 ML IV SCH ×2 (06:23→13:33)
[2018-06-01 06:27] LABS: Glucose,Whole Blood 98 mg/dL (75-99)
[2018-06-01 06:31] LABS: Basophils % (A) 0 %; Eosinophils # (A) 0.1 k/uL (0-0.7); Eosinophils % (A) 1 %; HCT 40.9 % (34.0-46.0); HGB 13.8 gm/dL (11.4-16.0); Lymphocytes # (A) 2.3 k/uL (1.0-4.8); Lymphocytes % (A) 20 %; MCH 29.9 pg (25.0-35.0); MCHC 33.8 g/dL (31.0-37.0); MCV 88.3 fL (80.0-100.0); Monocytes # (A) 0.7 k/uL (0-1.0); Monocytes % (A) 6 %; Neutrophils # (A) 8.6 k/uL (1.3-7.7); Neutrophils % (A) 72 %; Platelet Count 300 k/uL (150-450); RBC 4.62 m/uL (3.80-5.40); RDW 13.2 % (11.5-15.5); WBC 11.8 k/uL (3.8-10.6)
[2018-06-01 06:32] VITALS: BMI 35.7
[2018-06-01 08:29] LABS: Glucose,Whole Blood 87 mg/dL (75-99)
[2018-06-01 10:29] LABS: Glucose,Whole Blood 74 mg/dL (75-99)
[2018-06-01 12:20] LABS: Glucose,Whole Blood 72 mg/dL (75-99)
[2018-06-01 14:30] LABS: Glucose,Whole Blood 70 mg/dL (75-99)
[2018-06-01] MEDS: BUTORPHANOL 1 MG/ML 1 ML VIAL IV PRN ×2 (14:35→16:39)
[2018-06-01 15:17] LABS: Hemoglobin A1C 5.1 % (4.0-6.0)
[2018-06-01 16:37] LABS: Glucose,Whole Blood 72 mg/dL (75-99)
[2018-06-01] MEDS ORDERED: ROPIVACAINE 100 MG, fentaNYL (PF) 200 MCG in SODIUM CHLORIDE 0.9% 76 ML EPIDURAL ONE (19:19)
[2018-06-01 19:33] LABS: Glucose,Whole Blood 71 mg/dL (75-99)
[2018-06-01 22:29] LABS: Glucose,Whole Blood 108 mg/dL (75-99)
--- NOTE | 2018-06-02 01:30 | P.PROBDLV ---
Vaginal Delivery Note - . Vaginal Delivery Note: The patient progressed to complete dilation after oxytocin induction of labor and artificial rupture membranes with clear fluid noted. She did receive a couple of doses of Stadol followed by epidural. Once reaching complete dilation , she began pushing. Infant's head came to a crown. With one further push, the 's head delivered across the perineum in a right occiput anterior lie. She continued pushing and delivered the anterior shoulder. Nose and mouth were bulb suctioned at the perineum. Nuchal cord times one was reduced around the infant's head. With one further push, the remainder the easily delivered and was placed on mother's abdomen. Cord was clamped and cut and infant was taken to warmer for evaluation. A viable male was noted with scores of 9 at 1 minute and 9 at 5 minutes and weight of 7 pounds 12.7 ounces. Placenta delivered shortly thereafter, intact, with a three -vessel cord. Uterus contracted well after oxytocin was given and uterine massage was carried out. Bladder was also drained with a catheter. Inspection of the perineum revealed a small second-degree perineal laceration. This area was anesthetized with 1% lidocaine and then sutured with 3-0 Vicryl suture in the usual multilayer fashion. Estimated blood loss is approximately 200 mL's. Both mother and infant are in stable condition.
[2018-06-02] MEDS ORDERED: diphenhydrAMINE 50 MG/ML 1 ML VIAL IVP PRN ×2 (01:57)
[2018-06-02] MEDS ORDERED: diphenhydrAMINE 25 MG CAP PO PRN (01:57)
[2018-06-02] MEDS ORDERED: BENZOCAINE/MENTHOL SPRAY 1 GM/SPRAY AEROSOL TOPICAL PRN (01:57)
[2018-06-02] MEDS ORDERED: ZOLPIDEM 5 MG TAB PO PRN (01:57)
[2018-06-02] MEDS ORDERED: WITCH HAZEL 1 EACH MED..PAD TOPICAL PRN (01:57)
[2018-06-02] MEDS ORDERED: OXYTOCIN 20 UNITS/1000 ML NS 1,000 ML IV SCH (01:57)
[2018-06-02] MEDS ORDERED: ACETAMINOPHEN TAB 325 MG TAB PO PRN (01:57)
[2018-06-02] MEDS ORDERED: LANOLIN CREAM 5 GM TUBE TOPICAL PRN (01:57)
[2018-06-02] MEDS ORDERED: ALBUTEROL NEBULIZED 2.5 MG/3 ML INHALATION PRN (01:57)
[2018-06-02] MEDS ORDERED: SIMETHICONE 80 MG CHEWABLE PO PRN (01:57)
[2018-06-02] MEDS ORDERED: HYDROCORTISONE 2.5% RECTAL CREAM 30 GM TUBE RECTAL PRN (01:57)
[2018-06-02] MEDS ORDERED: diphenhydrAMINE 50 MG CAP PO PRN (01:57)
[2018-06-02] MEDS: SENNOSIDES-DOCUSATE SODIUM 1 EACH TAB PO SCH ×3 (03:04→19:57)
[2018-06-02] MEDS: IBUPROFEN 600 MG TAB PO PRN ×3 (03:23→22:35)
[2018-06-02] MEDS ORDERED: INFLUENZA VACCINE (6 MOS+) 60 MCG/0.5 ML SYRINGE IM ONE (12:01)
[2018-06-02] MEDS ORDERED: DIPH,PERTUS(ACELL)TETVAC-LF 0.5 ML VIAL IM ONE (12:02)
[2018-06-02] MEDS: LACTATED RINGERS 1,000 ML IV SCH (19:43)
[2018-06-03 06:37] LABS: Basophils % (A) 0 %; Eosinophils # (A) 0.1 k/uL (0-0.7); Eosinophils % (A) 1 %; HCT 35.8 % (34.0-46.0); HGB 11.7 gm/dL (11.4-16.0); Lymphocytes # (A) 3.1 k/uL (1.0-4.8); Lymphocytes % (A) 19 %; MCH 29.8 pg (25.0-35.0); MCHC 32.7 g/dL (31.0-37.0); MCV 91.1 fL (80.0-100.0); Mean Platelet Volume 6.6; Monocytes # (A) 0.8 k/uL (0-1.0); Monocytes % (A) 5 %; Neutrophils # (A) 11.6 k/uL (1.3-7.7); Neutrophils % (A) 73 %; Platelet Count 304 k/uL (150-450); RBC 3.93 m/uL (3.80-5.40); RDW 13.3 % (11.5-15.5); WBC 15.8 k/uL (3.8-10.6)
[2018-06-03] MEDS: IBUPROFEN 600 MG TAB PO PRN ×3 (08:21→21:09)
--- NOTE | 2018-06-03 09:11 | P.DS ---
Providers Date of admission: 06/01/18 05:45 Expected date of discharge: 06/03/18 Attending physician: Evie Clark Primary care physician: Stated None - Discharge Diagnosis(es) (1) 39 weeks gestation of Current Visit: No Status: Acute (2) Gestational diabetes mellitus (GDM) Current Visit: No Status: Acute Hospital Course: This is a 23-year-old female 1 para 0 at 39 and one sevenths weeks who presented for induction of labor. She underwent oxytocin induction of labor and delivered vaginally a viable male infant on 06/02/2018 with scores of 9 at 1 minute and 9 at 5 minutes and weight of 7 pounds 12.7 ounces. Her course has been uncomplicated. She is breast-feeding. Lochia is decreasing. Pain is fairly well controlled with ibuprofen. Vital signs are stable. Abdomen is soft with fundus firm and nontender. Extremities show negative Homans. Impression is status post vaginal delivery day #1. Plan is to discharge home today. Routine instructions are given. She is given a prescription for a breast pump and ibuprofen. She is advised follow-up in the office in 6 weeks for a check. She is advised to call the office if she has any further questions or concerns prior to her appointment time. Procedures: Oxytocin induction of labor Spontaneous vaginal delivery of a viable male on 06/02/2018 Patient Condition at Discharge: Stable Plan - Discharge Summary New Discharge Prescriptions: New RX: Ibuprofen [Motrin] 600 mg PO Q6HR PRN #60 tab PRN Reason: Mild Pain Or Fever >= 100.5 No Action Calcium Carbonate [Tums] 500 mg PO TID PRN PRN Reason: Heartburn Pnv,Calcium 72/Iron/Folic Acid [ Plus Tablet] 1 each PO DAILY MDD 1 Albuterol Inhaler [Ventolin Hfa Inhaler] 1 inhaler INHALATION DIRECTED PRN PRN Reason: asthma Discharge Medication List Albuterol Inhaler [Ventolin Hfa Inhaler] 1 inhaler INHALATION DIRECTED PRN [History] Calcium Carbonate [Tums] 500 mg PO TID PRN 04/18/18 [History] Pnv,Calcium 72/Iron/Folic Acid [ Plus Tablet] 1 each PO DAILY MDD 1 [History] RX: Ibuprofen [Motrin] 600 mg PO Q6HR PRN #60 tab 06/03/18 [Rx] Follow up Appointment(s)/Referral(s): Evie Clark DO [Doctor of Osteopathic Medicine] - 6 Weeks Activity/Diet/Wound Care/Special Instructions: Instructions 1. Do not begin any exercise program for 3 weeks. 2. Do not resume sexual relations for 3 weeks or longer if uncomfortable. 3. You may take tub baths or showers at any time. 4. You may use tampons if desired after 3 weeks. 5. Keep the area of episiotomy (stitches) clean and dry. 6. If you are not nursing, wear a good fitting, supportive bra during the day and limit fluid intake for at least 1 week to prevent breast engorgement. 7. Call the office, [phone], within the next week to make appointment for your 6 week checkup if it has not already been made. 8. Report any of the following occurrences to the doctor promptly: a. Heavy, excessive bleeding b. Chills, fever c. Burning or frequency of urination d. Pain or redness and breasts if nursing e. Increasing pain or swelling in episiotomy (stitches). In addition to the above instructions, the following additional should be followed: 1. No heavy lifting or straining (exercising) until after 6 week checkup. 2. Keep abdominal incision clean and dry: You may wear a dressing if more comfortable. 3. Make office appointment for 10 days after going home or as instructed by her doctor. Discharge Disposition: HOME SELF-CARE
[2018-06-03] MEDS: SENNOSIDES-DOCUSATE SODIUM 1 EACH TAB PO SCH ×2 (09:22→21:08)
[2018-06-03 16:02] VITALS: RESP 16
[2018-06-04] MEDS: IBUPROFEN 600 MG TAB PO PRN (06:04)
[2018-06-04 08:04] VITALS: BP 131/92; PULSE 90; TEMP 98
[2018-06-04] MEDS: SENNOSIDES-DOCUSATE SODIUM 1 EACH TAB PO SCH (08:05)
== END 2018-06-04 14:00 | disposition home or self-care (01) | DRG 805 ==
LOC: 4FBP 05:45
PROVIDERS: ADMIT Obstetrics & Gynecology; ATTEND Obstetrics & Gynecology
PROC: 3E033VJ Introduction of Other Hormone into Peripheral Vein, Percutaneous Approach (ICD-10-PCS; principal; 2018-06-01)
PROC: 10E0XZZ Delivery of Products of Conception, External Approach (ICD-10-PCS; principal; 2018-06-01)
PROC: 00HU33Z Insertion of Infusion Device into Spinal Canal, Percutaneous Approach (ICD-10-PCS; principal; 2018-06-01)
PROC: 10907ZC Drainage of Amniotic Fluid, Therapeutic from Products of Conception, Via Natural or Artificial Opening (ICD-10-PCS; principal; 2018-06-01)
PROC: 0KQM0ZZ Repair Perineum Muscle, Open Approach (ICD-10-PCS; principal; 2018-06-01)
PROC: 3E0R3NZ Introduction of Analgesics, Hypnotics, Sedatives into Spinal Canal, Percutaneous Approach (ICD-10-PCS; principal; 2018-06-01)
DX: O69.81X0 Labor and delivery complicated by cord around neck, without compression, not applicable or unspecified (principal); O99.42 Diseases of the circulatory system complicating childbirth; Z37.0 Single live birth; O24.420 Gestational diabetes mellitus in childbirth, diet controlled; Z3A.39 39 weeks gestation of pregnancy; O70.1 Second degree perineal laceration during delivery; M35.00 Sjogren syndrome, unspecified; I73.00 Raynaud's syndrome without gangrene
CPT/HCPCS: 83036; 85025; 86850; 86900; 86901; 88307; 90686; 90715

== ENCOUNTER 2019-08-20 18:41 | Emergency (ER) | payer BC ==
[2019-08-20] MEDS ORDERED: SODIUM CHLORIDE 0.9% 1,000 ML IV STA (19:40)
[2019-08-20] MEDS ORDERED: SODIUM CHLORIDE 0.9% 500 ML 500 ML IV STA (19:40)
[2019-08-20] MEDS ORDERED: ONDANSETRON 4 MG/2 ML VIAL IVP STA (19:40)
[2019-08-20 20:39] LABS: Basophils # (A) 0.1 k/uL (0-0.2); Basophils % (A) 1 %; Eosinophils # (A) 0.1 k/uL (0-0.7); Eosinophils % (A) 1 %; HCT 47.2 % (34.0-46.0); HGB 15.5 gm/dL (11.4-16.0); Lymphocytes # (A) 0.7 k/uL (1.0-4.8); Lymphocytes % (A) 8 %; MCH 27.1 pg (25.0-35.0); MCHC 32.9 g/dL (31.0-37.0); MCV 82.3 fL (80.0-100.0); Mean Platelet Volume 6.5; Monocytes # (A) 0.4 k/uL (0-1.0); Monocytes % (A) 5 %; Neutrophils # (A) 7.1 k/uL (1.3-7.7); Neutrophils % (A) 85 %; Platelet Count 403 k/uL (150-450); RBC 5.74 m/uL (3.80-5.40); WBC 8.4 k/uL (3.8-10.6)
--- NOTE | 2019-08-20 20:45 | ED ---
Nausea/Vomiting/Diarrhea HPI - General Chief complaint: Nausea/Vomiting/Diarrhea Stated complaint: fever/vomiting Time Seen by Provider: 08/20/19 18:56 Source: patient, family Mode of arrival: ambulatory Limitations: no limitations - History of Present Illness Initial comments: 24-year-old female patient presents to the emergency department today for meilda luation of vomiting and diarrhea. Patient states symptoms started this morning upon wakening. States she is having generalized abdominal pain with this. Denies any severe focal pain. States that she did have elevated temperature earlier today. States she's been unable to keep down any food or fluids. Denies any hematochezia, melena, or hematemesis. States she was having some bilious emesis. She does have an IUD and denies chance of . Denies any sick contacts or recent travel. Denies any upper respiratory symptoms. Patient denies any recent rash, shortness breath, chest pain, back pain, numbness, tingling, dizziness, weakness, hematuria, dysuria, urinary urgency, urinary frequency, headache, visual changes, or any other complaints. - Related Data Home Medications Medication Instructions Recorded Confirmed Albuterol Inhaler [Ventolin Hfa 1 inhaler INHALATION DIRECTED 04/18/18 06/01/18 Inhaler] PRN Calcium Carbonate [Tums] 500 mg PO TID PRN 04/18/18 06/01/18 Pnv,Calcium 72/Iron/Folic Acid 1 each PO DAILY MDD 1 04/18/18 06/01/18 [ Plus Tablet] Previous Rx's Medication Instructions Recorded Ibuprofen [Motrin] 600 mg PO Q6HR PRN #60 tab 06/03/18 Allergies Allergy/AdvReac Type Severity Reaction Status Date / Time Sulfa (Sulfonamide Allergy Severe Rash/Hives Verified 08/20/19 18:54 Antibiotics) doxycycline Allergy Intermediate Rash/Hives Verified 08/20/19 18:54 mustard Allergy Swelling Verified 08/20/19 18:54 Penicillins Allergy Rash/Hives Verified 08/20/19 18:54 Latex, Natural Rubber AdvReac Rash/Hives Verified 08/20/19 18:54 Review of Systems ROS Statement: Those systems with pertinent positive or pertinent negative responses have been documented in the HPI. ROS Other: All systems not noted in ROS Statement are negative. Past Medical History Past Medical History: Asthma, Rheumatoid Arthritis (RA) Additional Past Medical History / Comment(s): Sjogren's disease, Raynaud's synd neelam, gestational diabetes (diet controlled) History of Any Multi-Drug Resistant Organisms: None Reported Past Surgical History: Ear Surgery, Tonsillectomy Additional Past Surgical History / Comment(s): Myringotomy with tube placement, wisdom teeth Past Anesthesia/Blood Transfusion Reactions: No Reported Reaction Past Psychological History: ADD/ADHD Smoking Status: Never smoker Past Alcohol Use History: None Reported Past Drug Use History: None Reported - Past Family History Mother Additional Family Medical History / Comment(s): hysterectomy General Exam Limitations: no limitations General appearance: alert, in no apparent distress, other (This is a well- developed, well-nourished adult female patient in no acute distress. Vital signs upon presentation are temperature 97.6F, pulse 123, respirations 20, blood pressure 135/91, pulse ox 99% on room air.) Eye exam: Present: normal appearance, PERRL, EOMI. Absent: scleral icterus, conjunctival injection, periorbital swelling ENT exam: Present: normal exam, normal oropharynx, mucous membranes moist Respiratory exam: Present: normal lung sounds bilaterally. Absent: respiratory distress, wheezes, rales, rhonchi, stridor Cardiovascular Exam: Present: regular rate, normal rhythm, normal heart sounds. Absent: systolic murmur, diastolic murmur, rubs, gallop, clicks GI/Abdominal exam: Present: soft, tenderness (Generalized), normal bowel sounds. Absent: distended, guarding, rebound, rigid Neurological exam: Present: alert, oriented X3, CN II-XII intact Psychiatric exam: Present: normal affect, normal mood Skin exam: Present: warm, dry, intact, normal color. Absent: rash Course Vital Signs 08/20/19 08/20/19 18:52 21:47 Temperature 97.6 F 98.4 F Pulse Rate 123 H 111 H Respiratory 20 18 Rate Blood Pressure 135/91 115/68 O2 Sat by Pulse 99 100 Oximetry Medical Decision Making - Medical Decision Making 24-year-old female patient presents to the emergency department today for evaluation of vomiting and diarrhea. Physical examination did reveal soft nontender abdomen. Labs reviewed and are unremarkable. She was given IV fluids and Zofran. Upon reevaluation she does report improvement of symptoms. She is tolerating oral intake. We will discharge with a prescription for Zofran. She is instructed to start with clear liquid diet and advance as tolerated. She is instructed to follow-up with her primary care physician for recheck in 1-2 days. Return parameters were discussed in detail. She verbalizes understanding and agrees with this plan. - Lab Data Result diagrams: 08/20/19 20:00 08/20/19 20:00 Lab Results 08/20/19 08/20/19 08/20/19 Range/Units 20:00 20:00 20:00 WBC 8.4 (3.8-10.6) k/uL RBC 5.74 H (3.80-5.40) m/uL Hgb 15.5 (11.4-16.0) gm/dL Hct 47.2 H (34.0-46.0) % MCV 82.3 (80.0-100.0) fL MCH 27.1 (25.0-35.0) pg MCHC 32.9 (31.0-37.0) g/dL RDW 13.0 (11.5-15.5) % Plt Count 403 (150-450) k/uL Neutrophils % 85 % Lymphocytes % 8 % Monocytes % 5 % Eosinophils % 1 % Basophils % 1 % Neutrophils # 7.1 (1.3-7.7) k/uL Lymphocytes # 0.7 L (1.0-4.8) k/uL Monocytes # 0.4 (0-1.0) k/uL Eosinophils # 0.1 (0-0.7) k/uL Basophils # 0.1 (0-0.2) k/uL Sodium (137-145) mmol/L Potassium (3.5-5.1) mmol/L Chloride (98-107) mmol/L Carbon Dioxide (22-30) mmol/L Anion Gap mmol/L BUN (7-17) mg/dL Creatinine (0.52-1.04) mg/dL Est GFR (CKD-EPI)AfAm (>60 ml/min/1.73 sqM) Est GFR (CKD-EPI)NonAf (>60 ml/min/1.73 sqM) Glucose (74-99) mg/dL Calcium (8.4-10.2) mg/dL Total Bilirubin (0.2-1.3) mg/dL AST (14-36) U/L ALT (4-34) U/L Alkaline Phosphatase (38-126) U/L Total Protein (6.3-8.2) g/dL Albumin (3.5-5.0) g/dL Lipase (23-300) U/L Urine Color Yellow Urine Appearance Turbid H (Clear) Urine pH 6.0 (5.0-8.0) Ur Specific [place] 1.034 (1.001-1.035) Urine Protein 1+ H (Negative) Urine Glucose (UA) Negative (Negative) Urine Ketones Negative (Negative) Urine Blood Trace H (Negative) Urine Nitrite Negative (Negative) Urine Bilirubin Negative (Negative) Urine Urobilinogen <2.0 (<2.0) mg/dL Ur Leukocyte Esterase Small H (Negative) Urine RBC 21 H (0-5) /hpf Urine WBC 20 H (0-5) /hpf Ur Squamous Epith Cells 41 H (0-4) /hpf Urine Bacteria Few H (None) /hpf Urine Mucus Many H (None) /hpf Urine HCG, Qual Not Detected (Not Detectd) 08/20/19 Range/Units 20:00 WBC (3.8-10.6) k/uL RBC (3.80-5.40) m/uL Hgb (11.4-16.0) gm/dL Hct (34.0-46.0) % MCV (80.0-100.0) fL MCH (25.0-35.0) pg MCHC (31.0-37.0) g/dL RDW (11.5-15.5) % Plt Count (150-450) k/uL Neutrophils % % Lymphocytes % % Monocytes % % Eosinophils % % Basophils % % Neutrophils # (1.3-7.7) k/uL Lymphocytes # (1.0-4.8) k/uL Monocytes # (0-1.0) k/uL Eosinophils # (0-0.7) k/uL Basophils # (0-0.2) k/uL Sodium 141 (137-145) mmol/L Potassium 4.0 (3.5-5.1) mmol/L Chloride 103 (98-107) mmol/L Carbon Dioxide 27 (22-30) mmol/L Anion Gap 11 mmol/L BUN 15 (7-17) mg/dL Creatinine 0.62 (0.52-1.04) mg/dL Est GFR (CKD-EPI)AfAm >90 (>60 ml/min/1.73 sqM) Est GFR (CKD-EPI)NonAf >90 (>60 ml/min/1.73 sqM) Glucose 123 H (74-99) mg/dL Calcium 9.3 (8.4-10.2) mg/dL Total Bilirubin 1.3 (0.2-1.3) mg/dL AST 23 (14-36) U/L ALT 17 (4-34) U/L Alkaline Phosphatase 108 (38-126) U/L Total Protein 7.9 (6.3-8.2) g/dL Albumin 4.5 (3.5-5.0) g/dL Lipase 45 (23-300) U/L Urine Color Urine Appearance (Clear) Urine pH (5.0-8.0) Ur Specific [place] (1.001-1.035) Urine Protein (Negative) Urine Glucose (UA) (Negative) Urine Ketones (Negative) Urine Blood (Negative) Urine Nitrite (Negative) Urine Bilirubin (Negative) Urine Urobilinogen (<2.0) mg/dL Ur Leukocyte Esterase (Negative) Urine RBC (0-5) /hpf Urine WBC (0-5) /hpf Ur Squamous Epith Cells (0-4) /hpf Urine Bacteria (None) /hpf Urine Mucus (None) /hpf Urine HCG, Qual (Not Detectd) Disposition Clinical Impression: Vomiting and diarrhea Disposition: HOME SELF-CARE Condition: Good Instructions (If sedation given, give patient instructions): Acute Nausea and Vomiting (ED), Acute Diarrhea (ED) Additional Instructions: Start with a clear liquid diet and advance as tolerated. Take Zofran every 6-8 hours as needed for nausea. Follow-up with your primary care physician for recheck in 1-2 days. Return to the emergency department immediately for any new, worsening, or concerning symptoms. Is patient prescribed a controlled substance at d/c from ED?: No Referrals: Aries Diez MD [Primary Care Provider] - 1-2 days Time of Disposition: 21:34
[2019-08-20 20:50] LABS: ALT 17 U/L (4-34); AST 23 U/L (14-36); African American GFR (CKD) >90 (>60 ml/min/1.73 sqM); Albumin 4.5 g/dL (3.5-5.0); Alkaline Phosphatase 108 U/L (38-126); Anion Gap 11 mmol/L; Blood Urea Nitrogen 15 mg/dL (7-17); Calcium 9.3 mg/dL (8.4-10.2); Carbon Dioxide 27 mmol/L (22-30); Chloride 103 mmol/L (98-107); Glucose 123 mg/dL (74-99); Non-African American GFR(CKD) >90 (>60 ml/min/1.73 sqM); Sodium 141 mmol/L (137-145); Total Bilirubin 1.3 mg/dL (0.2-1.3); Total Protein 7.9 g/dL (6.3-8.2)
[2019-08-20 20:51] LABS: Appearance,Urine Turbid (Clear); Bacteria,Urine Few /hpf; Bilirubin,Urine Negative (Negative); Blood,Urine Trace (Negative); Color,Urine Yellow; Glucose,Urine (UA) Negative (Negative); Ketones,Urine Negative (Negative); Leukocyte Esterase,Urine Small (Negative); Mucus,Urine Many /hpf; Nitrite,Urine Negative (Negative); Protein,Urine 1+ (Negative); RBC,Urine 21 /hpf (0-5); Specific Gravity,Urine 1.034 (1.001-1.035); Squamous Epithelial Cell,Urine 41 /hpf (0-4); Urobilinogen,Urine <2.0 mg/dL (<2.0); WBC,Urine 20 /hpf (0-5)
[2019-08-20] MEDS ORDERED: ONDANSETRON 4 MG ODT STARTER PACK 2 TAB BTL PO STA (21:34)
[2019-08-20 21:48] VITALS: BP 115/68; PULSE 111; RESP 18; TEMP 98.4
== END 2019-08-20 21:51 | disposition home or self-care (01) ==
LOC: EC 18:41
DX: R11.2 Nausea with vomiting, unspecified (principal); R19.7 Diarrhea, unspecified; R50.9 Fever, unspecified; R10.84 Generalized abdominal pain; J45.909 Unspecified asthma, uncomplicated; Z97.5 Presence of (intrauterine) contraceptive device; Z79.899 Other long term (current) drug therapy; Z88.2 Allergy status to sulfonamides; Z88.1 Allergy status to other antibiotic agents; Z91.018 Allergy to other foods; Z88.0 Allergy status to penicillin; Z91.040 Latex allergy status
CPT/HCPCS: 36415; 80053; 83690; 85025; 81001; 81025; 87086; 99284; 96374; 96361 ×2; J2405; S0119

== ENCOUNTER 2021-03-15 10:40 | Emergency (ER) | payer BC ==
[2021-03-15] MEDS ORDERED: ACETAMINOPHEN TAB 500 MG TAB PO STA (11:14)
[2021-03-15] MEDS ORDERED: IBUPROFEN 600 MG TAB PO STA (11:14)
--- NOTE | 2021-03-15 11:19 | ED ---
General Adult HPI - General Chief complaint: Fever Stated complaint: Fever/Rectal Bleeding Time Seen by Provider: 03/15/21 10:50 Source: patient, RN notes reviewed Mode of arrival: ambulatory - History of Present Illness Initial comments: 25-year-old female with a past medical history of asthma, Sjogren's disease, Raynaud's syndrome, gestational diabetes presents to the emergency room for fever. Patient reports she's had a fever since yesterday. She started to get chills and aches. Patient states she also has a hemorrhoid. This started 4 days ago. Patient states it is very painful. Patient is concerned that she could have an infection causing the fever. She doesn't recall cough that started last week but had a negative coronavirus test at urgent care. States she still does have a dry cough denies congestion or sore throat. Denies abdominal pain nausea vomiting or diarrhea. Patient did not take Motrin or Tylenol today.Patient has no other complaints at this time including shortness of breath, chest pain, abdominal pain, nausea or vomiting, headache, or visual changes. - Related Data Home Medications Medication Instructions Recorded Confirmed Albuterol Sulfate [Albuterol 2 puff PO RT-Q6H PRN 03/15/21 03/15/21 Sulfate Hfa] Levonest 1 tab PO DAILY 03/15/21 03/15/21 hydroCHLOROthiazide [Hydrodiuril] 25 mg PO DAILY 03/15/21 03/15/21 Previous Rx's Medication Instructions Recorded Cephalexin [Keflex] 500 mg PO TID 7 Days #21 cap 03/15/21 Hydrocortisone [Anusol-Hc] 1 applic RECTAL QID #30 gm 03/15/21 Allergies Allergy/AdvReac Type Severity Reaction Status Date / Time Sulfa (Sulfonamide Allergy Severe Rash/Hives Verified 03/15/21 11:45 Antibiotics) doxycycline Allergy Intermediate Rash/Hives Verified 03/15/21 11:45 Latex, Natural Rubber Allergy Rash/Hives Verified 03/15/21 11:45 mustard Allergy Swelling Verified 03/15/21 11:45 Penicillins Allergy Rash/Hives Verified 03/15/21 11:45 shellfish derived [Shellfish] Allergy Swelling Verified 03/15/21 11:45 Review of Systems ROS Statement: Those systems with pertinent positive or pertinent negative responses have been documented in the HPI. ROS Other: All systems not noted in ROS Statement are negative. Past Medical History Past Medical History: Asthma, Rheumatoid Arthritis (RA) Additional Past Medical History / Comment(s): Sjogren's disease, Raynaud's syndrome, gestational diabetes (diet controlled) History of Any Multi-Drug Resistant Organisms: None Reported Past Surgical History: Ear Surgery, Tonsillectomy Additional Past Surgical History / Comment(s): Myringotomy with tube placement, wisdom teeth Past Anesthesia/Blood Transfusion Reactions: No Reported Reaction Past Psychological History: ADD/ADHD Past Alcohol Use History: None Reported Past Drug Use History: None Reported - Past Family History Mother Additional Family Medical History / Comment(s): hysterectomy General Exam General appearance: alert Head exam: Present: atraumatic Eye exam: Present: normal appearance, PERRL, EOMI. Absent: scleral icterus ENT exam: Present: normal exam, normal oropharynx, mucous membranes moist, TM's normal bilaterally, normal external ear exam Neck exam: Present: normal inspection, full ROM. Absent: tenderness Respiratory exam: Present: normal lung sounds bilaterally. Absent: respiratory distress, wheezes Cardiovascular Exam: Present: regular rate, normal rhythm, normal heart sounds GI/Abdominal exam: Present: soft, normal bowel sounds. Absent: distended, tenderness, guarding, rebound, rigid Rectal exam: Present: hemorrhoids (thrombosed hemorrhoid) Neurological exam: Present: alert Course Vital Signs 03/15/21 03/15/21 03/15/21 10:40 10:44 12:28 Temperature 99.3 F 102.7 F H 100.8 F H Pulse Rate 124 H 111 H Respiratory 18 16 Rate Blood Pressure 155/100 131/85 O2 Sat by Pulse 99 95 Oximetry 03/15/21 03/15/21 13:00 14:00 Temperature 98.6 F Pulse Rate 100 90 Respiratory 16 16 Rate Blood Pressure 131/86 O2 Sat by Pulse 95 95 Oximetry Procedures - Procedures Initial comment: Lidocaine with epi mixed with bupivacaine was injected into the anus. 11 blade was used to superficially incise hemorrhoid. Blood clots were removed. No significant bleeding or complications. Patient tolerated procedure well. Medical Decision Making - Medical Decision Making Patient presents with a 102.7 fever. However vitals are stable. Patient does have a mild cough. Scrotal erythema and chest x-ray are negative. CBC does not show an elevated white blood cell count. CMP unremarkable. Slight hyponat remia however patient given fluids. Patient does have 41 white blood cells in the urine and is likely the cause of her fever. She does report she has a history of UTIs and has been urinating more frequently. However given rectal pain and high fever a CT was obtained to rule out any abscesses. This showed no abnormality of the rectum. There is a 2.8 cm lesion inferior right liver lobe mass, could be hemangioma, recommend ultrasound. Patient was advised of this. Patient does have an external thrombosed hemorrhoid. This was excised by Dr. Melendez. Patient tolerated procedure well. Patient was given Rocephin for urinary tract infection and Anusol for hemorrhoid. - Lab Data Result diagrams: 03/15/21 11:40 03/15/21 11:40 Lab Results 03/15/21 03/15/21 03/15/21 Range/Units 11:40 11:40 11:40 WBC 7.5 (3.8-10.6) k/uL RBC 5.29 (3.80-5.40) m/uL Hgb 14.9 (11.4-16.0) gm/dL Hct 44.3 (34.0-46.0) % MCV 83.7 (80.0-100.0) fL MCH 28.2 (25.0-35.0) pg MCHC 33.8 (31.0-37.0) g/dL RDW 14.8 (11.5-15.5) % Plt Count 319 (150-450) k/uL MPV 6.7 Neutrophils % 77 % Lymphocytes % 11 % Monocytes % 9 % Eosinophils % 0 % Basophils % 1 % Neutrophils # 5.8 (1.3-7.7) k/uL Lymphocytes # 0.9 L (1.0-4.8) k/uL Monocytes # 0.7 (0-1.0) k/uL Eosinophils # 0.0 (0-0.7) k/uL Basophils # 0.1 (0-0.2) k/uL Sodium 133 L (137-145) mmol/L Potassium 3.7 (3.5-5.1) mmol/L Chloride 101 (98-107) mmol/L Carbon Dioxide 22 (22-30) mmol/L Anion Gap 10 mmol/L BUN 4 L (7-17) mg/dL Creatinine 0.58 (0.52-1.04) mg/dL Est GFR (CKD-EPI)AfAm >90 (>60 ml/min/1.73 sqM) Est GFR (CKD-EPI)NonAf >90 (>60 ml/min/1.73 sqM) Glucose 103 H (74-99) mg/dL Plasma Lactic Acid Nathaniel (0.7-2.0) mmol/L Calcium 8.9 (8.4-10.2) mg/dL Total Bilirubin 1.3 (0.2-1.3) mg/dL AST 101 H (14-36) U/L ALT 103 H (4-34) U/L Alkaline Phosphatase 77 (38-126) U/L Total Protein 7.3 (6.3-8.2) g/dL Albumin 4.3 (3.5-5.0) g/dL Urine Color Yellow Urine Appearance Cloudy H (Clear) Urine pH 7.5 (5.0-8.0) Ur Specific [place] 1.011 (1.001-1.035) Urine Protein Trace H (Negative) Urine Glucose (UA) Negative (Negative) Urine Ketones Negative (Negative) Urine Blood Trace H (Negative) Urine Nitrite Negative (Negative) Urine Bilirubin Negative (Negative) Urine Urobilinogen <2.0 (<2.0) mg/dL Ur Leukocyte Esterase Large H (Negative) Urine RBC 1 (0-5) /hpf Urine WBC 41 H (0-5) /hpf Ur Squamous Epith Cells 3 (0-4) /hpf Urine Bacteria Rare H (None) /hpf Urine Mucus Rare H (None) /hpf Urine HCG, Qual (Not Detectd) Coronavirus (PCR) (Not Detectd) Influenza Type A RNA (Not Detectd) Influenza Type B (PCR) (Not Detectd) 03/15/21 03/15/21 03/15/21 Range/Units 11:40 11:40 11:40 WBC (3.8-10.6) k/uL RBC (3.80-5.40) m/uL Hgb (11.4-16.0) gm/dL Hct (34.0-46.0) % MCV (80.0-100.0) fL MCH (25.0-35.0) pg MCHC (31.0-37.0) g/dL RDW (11.5-15.5) % Plt Count (150-450) k/uL MPV Neutrophils % % Lymphocytes % % Monocytes % % Eosinophils % % Basophils % % Neutrophils # (1.3-7.7) k/uL Lymphocytes # (1.0-4.8) k/uL Monocytes # (0-1.0) k/uL Eosinophils # (0-0.7) k/uL Basophils # (0-0.2) k/uL Sodium (137-145) mmol/L Potassium (3.5-5.1) mmol/L Chloride (98-107) mmol/L Carbon Dioxide (22-30) mmol/L Anion Gap mmol/L BUN (7-17) mg/dL Creatinine (0.52-1.04) mg/dL Est GFR (CKD-EPI)AfAm (>60 ml/min/1.73 sqM) Est GFR (CKD-EPI)NonAf (>60 ml/min/1.73 sqM) Glucose (74-99) mg/dL Plasma Lactic Acid Nathaniel 0.8 (0.7-2.0) mmol/L Calcium (8.4-10.2) mg/dL Total Bilirubin (0.2-1.3) mg/dL AST (14-36) U/L ALT (4-34) U/L Alkaline Phosphatase (38-126) U/L Total Protein (6.3-8.2) g/dL Albumin (3.5-5.0) g/dL Urine Color Urine Appearance (Clear) Urine pH (5.0-8.0) Ur Specific [place] (1.001-1.035) Urine Protein (Negative) Urine Glucose (UA) (Negative) Urine Ketones (Negative) Urine Blood (Negative) Urine Nitrite (Negative) Urine Bilirubin (Negative) Urine Urobilinogen (<2.0) mg/dL Ur Leukocyte Esterase (Negative) Urine RBC (0-5) /hpf Urine WBC (0-5) /hpf Ur Squamous Epith Cells (0-4) /hpf Urine Bacteria (None) /hpf Urine Mucus (None) /hpf Urine HCG, Qual (Not Detectd) Coronavirus (PCR) Not Detected (Not Detectd) Influenza Type A RNA Not Detected (Not Detectd) Influenza Type B (PCR) Not Detected (Not Detectd) 03/15/21 Range/Units 11:40 WBC (3.8-10.6) k/uL RBC (3.80-5.40) m/uL Hgb (11.4-16.0) gm/dL Hct (34.0-46.0) % MCV (80.0-100.0) fL MCH (25.0-35.0) pg MCHC (31.0-37.0) g/dL RDW (11.5-15.5) % Plt Count (150-450) k/uL MPV Neutrophils % % Lymphocytes % % Monocytes % % Eosinophils % % Basophils % % Neutrophils # (1.3-7.7) k/uL Lymphocytes # (1.0-4.8) k/uL Monocytes # (0-1.0) k/uL Eosinophils # (0-0.7) k/uL Basophils # (0-0.2) k/uL Sodium (137-145) mmol/L Potassium (3.5-5.1) mmol/L Chloride (98-107) mmol/L Carbon Dioxide (22-30) mmol/L Anion Gap mmol/L BUN (7-17) mg/dL Creatinine (0.52-1.04) mg/dL Est GFR (CKD-EPI)AfAm (>60 ml/min/1.73 sqM) Est GFR (CKD-EPI)NonAf (>60 ml/min/1.73 sqM) Glucose (74-99) mg/dL Plasma Lactic Acid Nathaniel (0.7-2.0) mmol/L Calcium (8.4-10.2) mg/dL Total Bilirubin (0.2-1.3) mg/dL AST (14-36) U/L ALT (4-34) U/L Alkaline Phosphatase (38-126) U/L Total Protein (6.3-8.2) g/dL Albumin (3.5-5.0) g/dL Urine Color Urine Appearance (Clear) Urine pH (5.0-8.0) Ur Specific [place] (1.001-1.035) Urine Protein (Negative) Urine Glucose (UA) (Negative) Urine Ketones (Negative) Urine Blood (Negative) Urine Nitrite (Negative) Urine Bilirubin (Negative) Urine Urobilinogen (<2.0) mg/dL Ur Leukocyte Esterase (Negative) Urine RBC (0-5) /hpf Urine WBC (0-5) /hpf Ur Squamous Epith Cells (0-4) /hpf Urine Bacteria (None) /hpf Urine Mucus (None) /hpf Urine HCG, Qual Not Detected (Not Detectd) Coronavirus (PCR) (Not Detectd) Influenza Type A RNA (Not Detectd) Influenza Type B (PCR) (Not Detectd) Disposition Clinical Impression: UTI (urinary tract infection), Hemorrhoid, Fever Disposition: HOME SELF-CARE Condition: Good Instructions (If sedation given, give patient instructions): Urinary Tract Infection in Women (ED), Hemorrhoids (ED) Additional Instructions: Please take antibiotic as directed for UTI. Apply cream to hemorrhoid as directed as well. Make sure you're keeping the area very clean with soap and water. Take Motrin and Tylenol for pain. Follow up with primary care. If needed follow-up with surgery. Return to the emergency room for any worsening symptoms. Prescriptions: Hydrocortisone [Anusol-Hc] 1 applic RECTAL QID #30 gm Cephalexin [Keflex] 500 mg PO TID 7 Days #21 cap Is patient prescribed a controlled substance at d/c from ED?: No Referrals: Aries Diez MD [Primary Care Provider] - 1-2 days Time of Disposition: 15:37
--- NOTE | 2021-03-15 12:02 | XR ---
EXAMINATION TYPE: XR chest 2V DATE OF EXAM: 03/15/2021 COMPARISON: NONE HISTORY: Fever and congestion. History of asthma. TECHNIQUE: Frontal and lateral views of the chest are obtained. FINDINGS: There is no focal air space opacity, pleural effusion, or pneumothorax seen. The cardiac silhouette size is within normal limits. The osseous structures are intact. IMPRESSION: No acute cardiopulmonary process.
[2021-03-15 12:06] LABS: Basophils # (A) 0.1 k/uL (0-0.2); Basophils % (A) 1 %; Eosinophils % (A) 0 %; HCT 44.3 % (34.0-46.0); HGB 14.9 gm/dL (11.4-16.0); Lymphocytes # (A) 0.9 k/uL (1.0-4.8); Lymphocytes % (A) 11 %; MCH 28.2 pg (25.0-35.0); MCHC 33.8 g/dL (31.0-37.0); MCV 83.7 fL (80.0-100.0); Mean Platelet Volume 6.7; Monocytes # (A) 0.7 k/uL (0-1.0); Monocytes % (A) 9 %; Neutrophils # (A) 5.8 k/uL (1.3-7.7); Neutrophils % (A) 77 %; Platelet Count 319 k/uL (150-450); RBC 5.29 m/uL (3.80-5.40); RDW 14.8 % (11.5-15.5); WBC 7.5 k/uL (3.8-10.6)
[2021-03-15 12:15] LABS: Appearance,Urine Cloudy (Clear); Bacteria,Urine Rare /hpf; Bilirubin,Urine Negative (Negative); Blood,Urine Trace (Negative); Color,Urine Yellow; Glucose,Urine (UA) Negative (Negative); Ketones,Urine Negative (Negative); Leukocyte Esterase,Urine Large (Negative); Mucus,Urine Rare /hpf; Nitrite,Urine Negative (Negative); PH, Urine 7.5 (5.0-8.0); Protein,Urine Trace (Negative); RBC,Urine 1 /hpf (0-5); Specific Gravity,Urine 1.011 (1.001-1.035); Squamous Epithelial Cell,Urine 3 /hpf (0-4); Urobilinogen,Urine <2.0 mg/dL (<2.0); WBC,Urine 41 /hpf (0-5)
[2021-03-15 12:22] LABS: ALT 103 U/L (4-34); AST 101 U/L (14-36); African American GFR (CKD) >90 (>60 ml/min/1.73 sqM); Albumin 4.3 g/dL (3.5-5.0); Alkaline Phosphatase 77 U/L (38-126); Anion Gap 10 mmol/L; Blood Urea Nitrogen 4 mg/dL (7-17); Calcium 8.9 mg/dL (8.4-10.2); Carbon Dioxide 22 mmol/L (22-30); Chloride 101 mmol/L (98-107); Glucose 103 mg/dL (74-99); Non-African American GFR(CKD) >90 (>60 ml/min/1.73 sqM); Sodium 133 mmol/L (137-145); Total Bilirubin 1.3 mg/dL (0.2-1.3); Total Protein 7.3 g/dL (6.3-8.2)
[2021-03-15 12:29] VITALS: RESP 16
[2021-03-15 12:43] LABS: Potassium 3.7 mmol/L (3.5-5.1)
--- NOTE | 2021-03-15 13:41 | CT ---
EXAMINATION TYPE: CT abdomen pelvis w con DATE OF EXAM: 03/15/2021 COMPARISON: NONE HISTORY: 25-year-old female rectal pain, fever TECHNIQUE: Contiguous axial scanning of the abdomen and pelvis following administration of 100 ml Iso jennifer 300 IV contrast. Delayed images through the kidneys and coronal/sagittal reconstructions perform ed. CT DLP: 1637.2 mGycm Automated exposure control for dose reduction was used. FINDINGS: Heart normal size without pericardial effusion. Lung bases clear without pleural effusion. 2.8 cm hypodense lesion inferior right liver lobe may have some peripheral nodular enhancement. No ot her focal liver lesion. No biliary ductal dilatation. Portal venous system is patent. Gallbladder, adrenal glands, kidneys, spleen, and pancreas within normal limits. No dilated small bowel, free fluid, or free air. No mesenteric or retroperitoneal lymphadenopathy. Normal appendix. No pericolonic inflammatory change. No specific abnormality seen of the rectum. The bladder is collapsed. Uterus is anteverted. Both ovaries are visualized with follicular change. N o abnormal fluid collection in the pelvis or pelvic lymphadenopathy. Bones: No osseous destructive process. IMPRESSION: 1. NORMAL FOLLICULAR CHANGE IN THE OVARIES. NO PELVIC FREE FLUID. NO SPECIFIC ABNORMALITY OF THE RECT UM APPRECIATED. 2. A 2.8 CM LESION INFERIOR RIGHT LIVER LOBE MASS AND PERIPHERAL NODULAR ENHANCEMENT RAISING THE POSS IBILITY OF A HEMANGIOMA. RECOMMEND ULTRASOUND TO FURTHER CHARACTERIZE. IF THERE ARE TYPICAL FEATURES OF HEMANGIOMA, THE AREA CAN BE FOLLOWED BY ULTRASOUND A PRECAUTIONARY MEASURE.
[2021-03-15] MEDS ORDERED: LIDOCAINE 1%-EPI 1:100,000 20 ML VIAL SQ STA (14:06)
[2021-03-15] MEDS ORDERED: BUPIVACAINE (PF) 0.5% 30 ML VIAL SQ STA (14:06)
[2021-03-15] MEDS ORDERED: cefTRIAXone IN SWFI 1,000 MG/10 ML SYRINGE IVP STA (14:07)
[2021-03-15 14:10] VITALS: TEMP 98.6
[2021-03-15 16:04] VITALS: BP 129/83; PULSE 85
== END 2021-03-15 16:05 | disposition home or self-care (01) ==
LOC: EC 10:40
DX: K64.9 Unspecified hemorrhoids (principal); N39.0 Urinary tract infection, site not specified; J45.909 Unspecified asthma, uncomplicated; M06.9 Rheumatoid arthritis, unspecified; Z79.899 Other long term (current) drug therapy; Z88.0 Allergy status to penicillin; Z88.2 Allergy status to sulfonamides
CPT/HCPCS: 36415; 80053; 83605; 85025; 81001; 81025; 87040; 87086; 87502; 87635; 71046; 74177; 96374; 99284; 46083; J0696; Q9967

== ENCOUNTER 2025-02-09 05:56 | Emergency (ER) | payer BC ==
[2025-02-09 06:05] VITALS: TEMP 98.1
--- NOTE | 2025-02-09 06:18 | ED ---
Nausea/Vomiting/Diarrhea HPI - General Chief complaint: Nausea/Vomiting/Diarrhea Stated complaint: vomitting up blood Time Seen by Provider: 02/09/25 06:18 Source: patient, RN notes reviewed Mode of arrival: ambulatory Limitations: no limitations - History of Present Illness Initial comments: 29-year-old female presented the ER for evaluation of nausea and vomiting. Patient states since Friday morning she has been experience persistent nausea, vomiting, diarrhea and a burning sharp upper abdominal pain. Patient reports she was seen at [facility] on Friday and received IV fluids and Zofran. She states she continued to have episodes of emesis while receiving IV medications. Patient states she was ultimately discharged home with a prescription of Zofran. She reports symptoms have persisted and she has been unable to eat or keep anything down since Friday. She has also tried over the counter antiemetics. She does report diarrhea has subsided. Over the past day patient has noted a dark brown discoloration to her emesis. She denies a history of GI bleeds or blood thinner use. Patient is currently rating her abdominal discomfort a 5 out of 10. Patient reports a history of hiatal hernia. No prior abdominal surgeries. No history of ulcerative colitis or Crohn's disease. Patient denies or abnormal vaginal bleeding or discharge. No urinary complaints, fevers, cough, congestion, shortness of breath, chest pain, dizziness, lightheadedness or peripheral edema. - Related Data Home Medications Medication Instructions Recorded Confirmed Albuterol Sulfate [Albuterol 2 puff PO RT-Q6H PRN 03/15/21 03/15/21 Sulfate Hfa] Levonest 1 tab PO DAILY 03/15/21 03/15/21 hydroCHLOROthiazide [Hydrodiuril] 25 mg PO DAILY 03/15/21 03/15/21 Previous Rx's Medication Instructions Recorded Cephalexin [Keflex] 500 mg PO TID 7 Days #21 cap 03/15/21 Hydrocortisone [Anusol-Hc] 1 applic RECTAL QID #30 gm 03/15/21 Omeprazole [PriLOSEC] 20 mg PO AC-BRKFST #14 cap 02/09/25 Allergies Allergy/AdvReac Type Severity Reaction Status Date / Time Sulfa (Sulfonamide Allergy Severe Rash/Hives Verified 02/09/25 06:04 Antibiotics) doxycycline Allergy Intermediate Rash/Hives Verified 02/09/25 06:04 Latex, Natural Rubber Allergy Rash/Hives Verified 02/09/25 06:04 mustard Allergy Swelling Verified 02/09/25 06:04 Penicillins Allergy Rash/Hives Verified 02/09/25 06:04 shellfish derived [Shellfish] Allergy Swelling Verified 02/09/25 06:04 Review of Systems ROS Statement: Those systems with pertinent positive or pertinent negative responses have been documented in the HPI. ROS Other: All systems not noted in ROS Statement are negative. Past Medical History Past Medical History: Asthma, Rheumatoid Arthritis (RA) Additional Past Medical History / Comment(s): Sjogren's disease, Raynaud's syndrome, gestational diabetes (diet controlled) History of Any Multi-Drug Resistant Organisms: None Reported Past Surgical History: Ear Surgery, Tonsillectomy Additional Past Surgical History / Comment(s): Myringotomy with tube placement, wisdom teeth Past Anesthesia/Blood Transfusion Reactions: No Reported Reaction Past Psychological History: ADD/ADHD Smoking Status: Never smoker Past Alcohol Use History: Rare Past Drug Use History: Marijuana - Past Family History Mother Additional Family Medical History / Comment(s): hysterectomy General Exam Limitations: no limitations General appearance: alert, in no apparent distress Respiratory exam: Present: normal lung sounds bilaterally. Absent: respiratory distress, wheezes, rales, rhonchi, stridor Cardiovascular Exam: Present: regular rate, normal rhythm, normal heart sounds. Absent: systolic murmur, diastolic murmur, rubs, gallop, clicks GI/Abdominal exam: Present: soft, tenderness (upper abdomen), normal bowel sounds Extremities exam: Present: normal inspection, full ROM, normal capillary refill. Absent: tenderness, pedal edema, joint swelling, calf tenderness Neurological exam: Present: alert, oriented X3, CN II-XII intact Skin exam: Present: warm, dry, intact, normal color. Absent: rash Course Vital Signs 02/09/25 02/09/25 06:02 08:55 Temperature 98.1 F Pulse Rate 120 H 79 Respiratory 18 14 Rate Blood Pressure 123/93 145/112 O2 Sat by Pulse 96 99 Oximetry Medical Decision Making - Medical Decision Making Was pt. sent in by a medical professional or institution (, PA, COST ACCOUNTING MANAGER, urgent care, hospital, or [facility]...) When possible be specific @ -[No] Did you speak to anyone other than the patient for history (EMS, parent, family, police, friend...)? What history was obtained from this source @ -[No] Did you review nursing and triage notes (agree or disagree)? Why? @ -[I reviewed and agree with nursing and triage notes] Were old charts reviewed (outside hosp., previous admission, EMS record, old EKG, old radiological studies, urgent care reports/EKG's, [facility] records)? Report findings @ -[No old charts were reviewed] Differential Diagnosis (chest pain, altered mental status, abdominal pain women, abdominal pain men, vaginal bleeding, weakness, fever, dyspnea, syncope, headache, dizziness, GI bleed, back pain, seizure, CVA, palpatations, mental he alth, musculoskeletal)? @ -Differential Abdominal Pain Women:Appendicitis, Cholecystitis, divertic ulosis, ischemic bowel, pancreatitis, hepatitis, UTI, gastroenteritis, AAA, incarcerated hernia, bowel obstruction, constipation, inflammatory bowel, hepatitis, peptic ulcer disease, splenic infarction, perforated viscus, vulvitis, ovarian torsion, PID, kidney stone, placenta abruption, this is not meant to be an all-inclusive list EKG interpreted by me (3pts min.). @ -None done X-rays interpreted by me (1pt min.). @ -[None done] CT interpreted by me (1pt min.). @ -[None done] U/S interpreted by me (1pt. min.). @ -[None done] What testing was considered but not performed or refused? (CT, X-rays, U/S, labs)? Why? @ -[None] What meds were considered but not given or refused? Why? @ -[None] Did you discuss the management of the patient with other professionals (professionals i.e. , PA, COST ACCOUNTING MANAGER, lab, RT, psych nurse, social service worker, creative services intern, teacher, diplomatic officer, case management associate)? Give summary @ -[No] Was smoking cessation discussed for >3mins.? @ -[No] Was critical care preformed (if so, how long)? @ -[No] Were there social determinants of health that impacted care today? How? (Randi elessness, low income, unemployed, alcoholism, drug addiction, transportation, low edu. Level, literacy, decrease access to med. care, long-term, rehab)? @ -[No] Was there de-escalation of care discussed even if they declined (Discuss DNR or withdrawal of care, Hospice)? DNR status @ -[No] What co-morbidities impacted this encounter? (DM, HTN, Smoking, COPD, CAD, Cancer, CVA, ARF, Chemo, Hep., AIDS, mental health diagnosis, sleep apnea, morbid obesity)? @ -[None] Was patient admitted / discharged? Hospital course, mention meds given and route, prescriptions, significant lab abnormalities, going to OR and other pertinent info. @ -[hospital course] Undiagnosed new problem with uncertain prognosis? @ -[No] Drug Therapy requiring intensive monitoring for toxicity (Heparin, Nitro, Insulin, Cardizem)? @ -[No] Were any procedures done? @ -[No] Diagnosis/symptom? @ -[default] Acute, or Chronic, or Acute on Chronic? @ -[default] Uncomplicated (without systemic symptoms) or Complicated (systemic symptoms)? @ -[default] Side effects of treatment? @ -[No] Exacerbation, Progression, or Severe Exacerbation? @ -[No] Poses a threat to life or bodily function? How? (Chest pain, [place], [place], pneumonia, PE, COPD, DKA, ARF, appy, cholecystitis, CVA, Diverticulitis, Homicidal, Suicidal, threat to staff... and all critical care pts) @ -[No] - Lab Data Result diagrams: 02/09/25 06:30 02/09/25 06:30 Lab Results 02/09/25 02/09/25 02/09/25 Range/Units 06:30 06:30 06:30 WBC 15.64 H (4.50-10.00) 10*3/uL RBC 5.88 H (4.10-5.20) 10*6/uL Hgb 15.5 H (12.0-15.0) g/dL Hct 46.5 H (37.2-46.3) % MCV 79.1 L (80.0-97.0) fL MCH 26.4 L (27.0-32.0) pg MCHC 33.3 (32.0-37.0) g/dL Plt Count 459 H (140-440) 10*3/uL MPV 8.3 L (9.5-12.2) fL Immature Gran % (Auto) 0.4 % Neutrophils % 74.8 % Lymphocytes % 15.9 % Monocytes % 8.5 % Eosinophils % 0.1 % Basophils % 0.3 % Immature Gran # 0.06 H (0.00-0.04) 10*3/uL Neutrophils # 11.70 H (1.80-7.70) 10*3/uL Lymphocytes # 2.49 (0.90-5.00) 10*3/uL Monocytes # 1.33 H (0.20-1.00) 10*3/uL Eosinophils # 0.01 L (0.04-0.35) 10*3/uL Basophils # 0.05 (0.00-0.10) 10*3/uL Sodium 137 (137-145) mmol/L Potassium 3.9 (3.5-5.1) mmol/L Chloride 95 L (98-107) mmol/L Carbon Dioxide 30 (22-30) mmol/L Anion Gap 12 mmol/L BUN 14 (7-17) mg/dL Creatinine 0.71 (0.52-1.04) mg/dL Est GFR (CKD-EPI)AfAm >90 (>60 ml/min/1.73 sqM) Est GFR (CKD-EPI)NonAf >90 (>60 ml/min/1.73 sqM) Glucose 119 H (74-99) mg/dL Plasma Lactic Acid Nathaniel 1.1 (0.7-2.0) mmol/L Calcium 9.5 (8.4-10.2) mg/dL Total Bilirubin 1.4 H (0.2-1.3) mg/dL AST 31 (14-36) U/L ALT 25 (4-34) U/L Alkaline Phosphatase 85 (38-126) U/L Total Protein 8.5 H (6.3-8.2) g/dL Albumin 4.8 (3.5-5.0) g/dL Amylase 54 (30-110) U/L Lipase 187 (23-300) U/L Urine Color Urine Appearance (Clear) Urine pH (5.0-8.0) Ur Specific [place] (1.001-1.035) Urine Protein (Negative) Urine Glucose (UA) (Negative) Urine Ketones (Negative) Urine Blood (Negative) Urine Nitrite (Negative) Urine Bilirubin (Negative) Urine Urobilinogen (<2.0) mg/dL Ur Leukocyte Esterase (Negative) Urine RBC (0-5) /hpf Urine WBC (0-5) /hpf Ur Squamous Epith Cells (0-4) /hpf Amorphous Sediment (None) /hpf Urine Bacteria (None) /hpf Urine Mucus (None) /hpf Urine HCG, Qual (Not Detectd) Urine Opiates Screen (NotDetected) Ur Oxycodone Screen (NotDetected) Urine Methadone Screen (NotDetected) Ur Barbiturates Screen (NotDetected) U Tricyclic Antidepress (NotDetected) Ur Phencyclidine Scrn (NotDetected) Ur Amphetamines Screen (NotDetected) U Methamphetamines Scrn (NotDetected) U Benzodiazepines Scrn (NotDetected) Urine Cocaine Screen (NotDetected) U Marijuana (THC) Screen (NotDetected) 02/09/25 02/09/25 Range/Units 07:11 07:11 WBC (4.50-10.00) 10*3/uL RBC (4.10-5.20) 10*6/uL Hgb (12.0-15.0) g/dL Hct (37.2-46.3) % MCV (80.0-97.0) fL MCH (27.0-32.0) pg MCHC (32.0-37.0) g/dL Plt Count (140-440) 10*3/uL MPV (9.5-12.2) fL Immature Gran % (Auto) % Neutrophils % % Lymphocytes % % Monocytes % % Eosinophils % % Basophils % % Immature Gran # (0.00-0.04) 10*3/uL Neutrophils # (1.80-7.70) 10*3/uL Lymphocytes # (0.90-5.00) 10*3/uL Monocytes # (0.20-1.00) 10*3/uL Eosinophils # (0.04-0.35) 10*3/uL Basophils # (0.00-0.10) 10*3/uL Sodium (137-145) mmol/L Potassium (3.5-5.1) mmol/L Chloride (98-107) mmol/L Carbon Dioxide (22-30) mmol/L Anion Gap mmol/L BUN (7-17) mg/dL Creatinine (0.52-1.04) mg/dL Est GFR (CKD-EPI)AfAm (>60 ml/min/1.73 sqM) Est GFR (CKD-EPI)NonAf (>60 ml/min/1.73 sqM) Glucose (74-99) mg/dL Plasma Lactic Acid Nathaniel (0.7-2.0) mmol/L Calcium (8.4-10.2) mg/dL Total Bilirubin (0.2-1.3) mg/dL AST (14-36) U/L ALT (4-34) U/L Alkaline Phosphatase (38-126) U/L Total Protein (6.3-8.2) g/dL Albumin (3.5-5.0) g/dL Amylase (30-110) U/L Lipase (23-300) U/L Urine Color Yellow Urine Appearance Cloudy H (Clear) Urine pH 7.0 (5.0-8.0) Ur Specific [place] 1.020 (1.001-1.035) Urine Protein 2+ H (Negative) Urine Glucose (UA) Negative (Negative) Urine Ketones 2+ H (Negative) Urine Blood Small H (Negative) Urine Nitrite Negative (Negative) Urine Bilirubin Negative (Negative) Urine Urobilinogen <2.0 (<2.0) mg/dL Ur Leukocyte Esterase Small H (Negative) Urine RBC 30 H (0-5) /hpf Urine WBC 11 H (0-5) /hpf Ur Squamous Epith Cells 9 H (0-4) /hpf Amorphous Sediment Rare H (None) /hpf Urine Bacteria Rare H (None) /hpf Urine Mucus Many H (None) /hpf Urine HCG, Qual Not Detected (Not Detectd) Urine Opiates Screen Not Detected (NotDetected) Ur Oxycodone Screen Not Detected (NotDetected) Urine Methadone Screen Not Detected (NotDetected) Ur Barbiturates Screen Not Detected (NotDetected) U Tricyclic Antidepress Not Detected (NotDetected) Ur Phencyclidine Scrn Not Detected (NotDetected) Ur Amphetamines Screen Not Detected (NotDetected) U Methamphetamines Scrn Not Detected (NotDetected) U Benzodiazepines Scrn Detected H (NotDetected) Urine Cocaine Screen Not Detected (NotDetected) U Marijuana (THC) Screen Detected H (NotDetected) Disposition Clinical Impression: Nausea and vomiting, Marijuana user Disposition: HOME SELF-CARE Condition: Stable Instructions (If sedation given, give patient instructions): Acute Nausea and Vomiting (ED) Additional Instructions: Continue Zofran as prescribed. You have been prescribed Protonix to aid with acid reflux. Follow-up closely with PCP and GI. I strongly recommend you stop smoking marijuana. Return to the ER for any new or worsening concerns Prescriptions: Omeprazole [PriLOSEC] 20 mg PO AC-BRKFST #14 cap Is patient prescribed a controlled substance at d/c from ED?: No Referrals: Macho Daley DO [Primary Care Provider] - 1-2 days Tisha Galarza MD [STAFF PHYSICIAN] - 1-2 days Time of Disposition: 09:11
[2025-02-09] MEDS: SODIUM CHLORIDE 0.9% 1,000 ML IV ONE (06:26)
[2025-02-09] MEDS: ONDANSETRON 4 MG/2 ML VIAL IVP STA (06:27)
[2025-02-09] MEDS: PANTOPRAZOLE 40 MG/10 ML VIAL IVP STA (06:28)
[2025-02-09 06:38] LABS: Basophils # (A) 0.05 10*3/uL (0.00-0.10); Basophils % (A) 0.3 %; Eosinophils # (A) 0.01 10*3/uL (0.04-0.35); Eosinophils % (A) 0.1 %; HCT 46.5 % (37.2-46.3); HGB 15.5 g/dL (12.0-15.0); Lymphocytes # (A) 2.49 10*3/uL (0.90-5.00); Lymphocytes % (A) 15.9 %; MCH 26.4 pg (27.0-32.0); MCHC 33.3 g/dL (32.0-37.0); MCV 79.1 fL (80.0-97.0); Monocytes # (A) 1.33 10*3/uL (0.20-1.00); Monocytes % (A) 8.5 %; Neutrophils # (A) 11.70 10*3/uL (1.80-7.70); Neutrophils % (A) 74.8 %; Platelet Count 459 10*3/uL (140-440); RBC 5.88 10*6/uL (4.10-5.20); RDW 14.5 % (11.5-14.5); WBC 15.64 10*3/uL (4.50-10.00)
[2025-02-09 07:07] LABS: AST 31 U/L (14-36); African American GFR (CKD) >90 (>60 ml/min/1.73 sqM); Albumin 4.8 g/dL (3.5-5.0); Alkaline Phosphatase 85 U/L (38-126); Anion Gap 12 mmol/L; Blood Urea Nitrogen 14 mg/dL (7-17); Calcium 9.5 mg/dL (8.4-10.2); Carbon Dioxide 30 mmol/L (22-30); Chloride 95 mmol/L (98-107); Glucose 119 mg/dL (74-99); Lipase 187 U/L (23-300); Non-African American GFR(CKD) >90 (>60 ml/min/1.73 sqM); Sodium 137 mmol/L (137-145); Total Protein 8.5 g/dL (6.3-8.2)
[2025-02-09 07:08] LABS: Potassium 3.9 mmol/L (3.5-5.1)
[2025-02-09 07:09] LABS: ALT 25 U/L (4-34); Amylase 54 U/L (30-110)
[2025-02-09] MEDS: SODIUM CHLORIDE 0.9% 500 ML 500 ML IV ONE (07:15)
[2025-02-09] MEDS: KETOROLAC 15 MG/ML 1 ML VIAL IVP STA ×2 (07:17→08:49)
[2025-02-09 08:01] LABS: Amorphous Sediment,Urine Rare /hpf; Bacteria,Urine Rare /hpf; Bilirubin,Urine Negative (Negative); Blood,Urine Small (Negative); Color,Urine Yellow; Glucose,Urine (UA) Negative (Negative); Ketones,Urine 2+ (Negative); Leukocyte Esterase,Urine Small (Negative); Mucus,Urine Many /hpf; Nitrite,Urine Negative (Negative); PH, Urine 7.0 (5.0-8.0); Protein,Urine 2+ (Negative); RBC,Urine 30 /hpf (0-5); Specific Gravity,Urine 1.020 (1.001-1.035); Squamous Epithelial Cell,Urine 9 /hpf (0-4); Urobilinogen,Urine <2.0 mg/dL (<2.0); WBC,Urine 11 /hpf (0-5)
[2025-02-09 08:04] LABS: Barbiturate Screen,Urine Not Detected (NotDetected); Benzodiazepines Screen,Urine Detected (NotDetected); Opiate Screen,Urine Not Detected (NotDetected); Oxycodone Screen, Urine Not Detected (NotDetected); Phencyclidine Screen,Urine Not Detected (NotDetected); Tricyclic Antidepressant,Urine Not Detected (NotDetected); Urn Cannabinoid Scrn Detected (NotDetected)
--- NOTE | 2025-02-09 08:13 | US ---
EXAMINATION TYPE: US gallbladder DATE OF EXAM: 02/09/2025 COMPARISON: CT CLINICAL INDICATION: Female, 29 years old with history of RUQ n/v; abd pain with N/V for 5 days TECHNIQUE: Grayscale and color Doppler imaging of the right upper quadrant was performed. FINDINGS: EXAM MEASUREMENTS: Liver Length: 15.7 cm Gallbladder Wall: 0.2 cm CBD: 0.8 cm Right Kidney: 9.3 x 4.3 x 5.6 cm Pancreas: wnl Liver: hemangioma right posterior lobe = 3.9 x 2.7 x 2.5cm Gallbladder: wnl Evidence for sonographic Alvarado's sign: no CBD: wnl Right Kidney: wnl IMPRESSION: 1. No evidence for acute process. 2. Hyperechoic lesion in the liver likely representing hemangioma given patient's age. Consider MRI liver mass protocol for complete evaluation. [facility], , 02/09/2025 8:10 AM
[2025-02-09 09:01] VITALS: BP 145/112; PULSE 79; RESP 14
== END 2025-02-09 09:25 | disposition home or self-care (01) ==
LOC: EC 05:56
DX: R11.2 Nausea with vomiting, unspecified (principal); F12.90 Cannabis use, unspecified, uncomplicated; Z88.0 Allergy status to penicillin; Z88.2 Allergy status to sulfonamides; Z91.013 Allergy to seafood; Z88.8 Allergy status to other drugs, medicaments and biological substances; Z91.018 Allergy to other foods; Z91.041 Radiographic dye allergy status
CPT/HCPCS: 36415; 80053; 82150; 83605; 83690; 85025; 81001; 81025; 80306; 87086; 76705; 99284; 96374; 96375 ×2; 96361 ×2; J2405; J1885; J2470